=== PATIENT | female | born 1970 | race Caucasian/White ===

== ENCOUNTER 2016-05-21 23:10 | Inpatient (IN) | payer MEDICAID ==
[2016-05-21] MEDS ORDERED: FENTANYL CITRATE INJ/PF 100 MCG/2 ML AMPUL IV ONE (23:22)
[2016-05-21] MEDS ORDERED: ROCURONIUM BROMIDE INJ 50 MG/5 ML VIAL IV ONE (23:22)
[2016-05-21] MEDS ORDERED: ETOMIDATE INJ/PF 20 MG/10 ML SDV IV ONE (23:22)
[2016-05-21] MEDS ORDERED: NORMAL SALINE 1000 ML 1,000 ML IV PRN (23:22)
[2016-05-21] MEDS ORDERED: FENTANYL CITRATE INJ/PF 100 MCG/2 ML AMPUL ONE (23:27)
[2016-05-21 23:28] LABS: ABSOLUTE EOSINOPHILS # (AUTO) 0.2 10^3/uL (0.0-0.6); ABSOLUTE MONOCYTES (AUTO) 0.5 10^3/uL (0.1-1.4); ABSOLUTE NEUT (AUTO) 5.6 10^3/uL (1.7-8.2); BASOPHILS % (AUTO) 0.3 % (0-2); EOSINOPHILS % (AUTO) 2.2 % (0-6); HEMATOCRIT 42.8 % (36.0-47.0); HGB HCT DIFFERENCE 2.2; LYMPHOCYTES % (AUTO) 23.9 % (13-45); MEAN CORPUSCULAR HEMOGLOBIN 30.7 pg (27.0-33.4); MEAN CORPUSCULAR VOLUME 88 fl (80-97); MONOCYTES % (AUTO) 5.6 % (3-13); RED BLOOD COUNT 4.87 10^6/uL (3.72-5.28); RED CELL DISTRIBUTION WIDTH 13.1 % (11.5-14.0); WHITE BLOOD COUNT 8.2 10^3/uL (4.0-10.5)
--- NOTE | 2016-05-21 23:29 | ER Document Report ---
ED Psych Disorder / Suicide - General Chief Complaint: Unresponsive Stated Complaint: RESPIRATORY DISTRESS Notes: The patient is a 45-year-old female, past medical history schizophrenia, bipolar , presents by EMS after she was found unresponsive by her son. Empty bottles of her Seroquel and Klonopin next to her. Her son also says that she uses Percocet. EMS arrived and found her unresponsive. They placed a nasal trumpet and placed her on a nonrebreather. Her Accu-Chek was 140 by EMS. She was breathing 6 times a minute and EMS gave 2 mg of intranasal Narcan and 2 mg IV Narcan. The son says that she has had multiple suicide attempts in the past. Unable provide any additional history. TRAVEL OUTSIDE OF THE [place] IN LAST 30 DAYS: No - Related Data Allergies/Adverse Reactions: codeine [Codeine] Allergy (Verified 08/12/14 11:07) throat swells, blisters on tongue hydrocodone bitartrate [From Vicodin] Allergy (Verified 08/12/14 11:08) VOMITING sulfamethoxazole [From Septra] Allergy (Verified 08/12/14 11:07) throat swells, blisters in mouth trimethoprim [From Septra] Allergy (Verified 08/12/14 11:07) throat swells, blisters in mouth Past Medical History - General Information source: Relative - Son, Emergency Med Personnel Cannot obtain history due to: Altered mental status - Social History Smoking Status: Unknown if Ever Smoked Family History: Reviewed & Not Pertinent - Past Medical History Cardiac Medical History: Denies: Hx Coronary Artery Disease, Hx Heart Attack, Hx Hypertension Pulmonary Medical History: Reports: Hx Asthma, Hx Bronchitis, Hx COPD - nodules on bilateral lungs Denies: Hx Pneumonia Neurological Medical History: Denies: Hx Cerebrovascular Accident, Hx Seizures Musculoskeltal Medical History: Reports Hx Arthritis Past Surgical History: Reports: Hx Gynecologic Surgery - D&C - Immunizations Hx Diphtheria, Pertussis, Tetanus Vaccination: Yes Review of Systems - Review of Systems -: Yes ROS unobtainable due to patient's medical condition Physical Exam - Vital signs Vitals: Resp Pulse Ox 23 H 98 05/21/16 23:12 05/21/16 23:12 - Notes Notes: PHYSICAL EXAMINATION: GENERAL: Unresponsive to painful stimulation. HEAD: Atraumatic, normocephalic. EYES: Bilateral pinpoint pupils, sclera anicteric, conjunctiva are normal. ENT: Nasal trumpet in place by EMS, nares patent, oropharynx clear without exudates. Moist mucous membranes. NECK: Normal range of motion, supple without lymphadenopathy LUNGS: Shallow respirations, bradypnea HEART: Tachycardia, regular rhythm ABDOMEN: Soft, nontender, normoactive bowel sounds. EXTREMITIES: Normal range of motion, no pitting or edema. No cyanosis. NEUROLOGICAL: No response to painful stimulation. Absent gag reflex. SKIN: Clammy, wet skin Course - Re-evaluation Re-evalutation: Pt with poly-pharmacy overdose. On arrival to the emergency room, she has no response to painful stimulation and no gag reflex. Breathing 6 times a minute. She received 4 mg Narcan by EMS without any change in clinical status. Decision was made to intubate patient for airway protection and altered mental status. 05/21/16 23:25 Spoke to Poison Control: Seroquel may cause hypotension and tachycardia. Percocet may cause hepatotoxicity. If QTc is over 500, check magnesium and potassium and replace. Risk for Torsades if bradycardic. Supportive treatment for Seroquel, Klonopin and Percocet. No specific antidotes recommended. 05/21/16 23:40 IVC paperwork filled out. Patient will be evaluated by mental health when she is stable. 05/22/16 01:[address] Jimenez and he has accepted patient to ICU. - Vital Signs Vital signs: Temp Pulse Resp BP Pulse Ox 16 98/78 L 98 05/22/16 00:45 05/22/16 00:45 05/22/16 00:45 - Laboratory Result Diagrams: 05/21/16 23:13 05/21/16 23:13 Laboratory results interpreted by me: 05/21/16 05/21/16 05/21/16 23:13 23:35 23:45 ABG pO2 192.6 H ABG O2 Saturation 99.3 H Potassium 3.4 L Glucose 152 H Calcium 10.3 H Urine Blood MODERATE H Ur Leukocyte Esterase LARGE H Salicylates < 1.0 L Acetaminophen < 10 L - Diagnostic Test Radiology reviewed: Image reviewed, Reports reviewed Radiology results interpreted by me: CT Head: NAD CXR: ETT in place - EKG Interpretation by Me EKG shows normal: Sinus rhythm, [place], QRS Complexes Rate: Tachycardia Additional EKG results interpreted by me: QTc 521, Normal QRS and [place] Procedures - Intubation Orotracheal Airway evaluation: Normal anatomy, Abnormal 3-3-2 rule Mallampati Classification: Class 1 Medications: Etomidate, Other - Rocuronium Intubation method: Orotracheal Blade type: [place] Blade size: 3 Equipment used: Glidescope ETT size: 7.0 ETT secured at: Lips ETT secured at (cm): 24 Breath Sounds after Intubation: Equal End tidal CO2 confirmed: Yes Ventilator settings: AC Tidal volume: 400 FiO2: 60 Respirations: 14 PEEP: 5 Post Intubation Xray: Yes Intubation Complications: No complications Critical Care Note - Critical Care Note Total time excluding time spent on procedures (mins): 45 Discharge - Discharge Clinical Impression: Unresponsive state Polysubstance overdose Qualifiers: Encounter type: initial encounter Injury intent: intentional self-harm Qualified Code(s): T50.902A - Poisoning by unspecified drugs, medicaments and biological substances, intentional self-harm, initial encounter Condition: Critical Disposition: ADMITTED INPATIENT [facility] Admitted: ICU
[2016-05-21 23:35] LABS: ALANINE AMINOTRANSFERASE 35 U/L (9-52); ALBUMIN 4.6 g/dL (3.5-5.0); ALKALINE PHOSPHATASE 103 U/L (38-126); ANION GAP 15 (5-19); ASPARTATE AMINO TRANSFERASE 21 U/L (14-36); BILIRUBIN,DIRECT 0.2 mg/dL (0.0-0.4); BILIRUBIN,TOTAL 0.9 mg/dL (0.2-1.3); BLOOD UREA NITROGEN 8 mg/dL (7-20); CALCIUM 10.3 mg/dL (8.4-10.2); CARBON DIOXIDE 25 mmol/L (22-30); CHLORIDE 103 mmol/L (98-107); CREATINE KINASE 35 U/L (30-135); CREATININE RESULT 0.75 mg/dL (0.52-1.25); GLUCOSE 152 mg/dL (75-110); LIPASE 74.1 U/L (23-300); POTASSIUM 3.4 mmol/L (3.6-5.0); SODIUM 143.3 mmol/L (137-145); TOTAL PROTEIN 7.5 g/dL (6.3-8.2)
[2016-05-21 23:37] LABS: ALCOHOL < 10 mg/dL (NONE DETECTED)
[2016-05-21 23:57] LABS: ARTERIAL BLOOD BASE EXCESS -3.1 mmol/L; ARTERIAL BLOOD O2 SATURATION 99.3 % (94-98)
[2016-05-22 00:11] LABS: APPEARANCE,URINE CLOUDY; BILIRUBIN,URINE NEGATIVE (NEGATIVE); GLUCOSE, URINE NEGATIVE (NEGATIVE); KETONES,URINE NEGATIVE (NEGATIVE); LEUKOCYTE ESTERASE,URINE LARGE (NEGATIVE); NITRITE,URINE NEGATIVE (NEGATIVE); PROTEIN,URINE NEGATIVE (NEGATIVE); URINE SPECIFIC GRAVITY 1.008; UROBILINOGEN,URINE NEGATIVE mg/dL (<2.0)
[2016-05-22 00:16] LABS: ADD ON TESTING BLD IN LAB ACKNOWLEDGE
[2016-05-22 00:18] LABS: URINE BARBITURATES SCREEN NEGATIVE; URINE METHADONE SCREEN NEGATIVE; URINE OPIATES LOW UNCONFIRMED POSITIVE; URINE PHENCYCLIDINE SCREEN NEGATIVE
[2016-05-22] MEDS ORDERED: NORMAL SALINE 1000 ML 1,000 ML IV ONE (01:02)
[2016-05-22] MEDS ORDERED: LORAZEPAM INJ 2 MG/1 ML VIAL IV PRN ×2 (02:30→08:30)
[2016-05-22] MEDS ORDERED: DEXTROSE 50%-WATER 25 GM/50 ML DISP.SYRIN IV PRN ×2 (02:31)
[2016-05-22] MEDS ORDERED: ACETAMINOPHEN 325 MG TABLET NG PRN (02:31)
[2016-05-22] MEDS ORDERED: GLUCAGON,HUMAN RECOMB 1 MG INJ SUBCUT PRN (02:31)
[2016-05-22] MEDS ORDERED: IPRATROPIUM/ALBUTEROL 0.5-2.5 MG/3 ML AMPUL NEB PRN (02:31)
[2016-05-22] MEDS ORDERED: DEXTROSE 40% GEL 15 GM TUBE PO PRN ×2 (02:31)
[2016-05-22] MEDS ORDERED: LORAZEPAM INJ 2 MG/1 ML VIAL ONE (02:34)
[2016-05-22] MEDS ORDERED: NORMAL SALINE 1000 ML 1,000 ML IV SCH (02:45)
[2016-05-22] MEDS: POTASSI CL 20 MEQ/50 ML RIDER 50 ML IV SCH ×4 (03:14→13:56)
[2016-05-22] MEDS ORDERED: PROPOFOL 100 ML IV ONE (03:42)
[2016-05-22 04:20] LABS: TROPONIN I < 0.012 ng/mL
[2016-05-22] MEDS: HEPARIN SOD (PORCINE) 5,000 UNIT/ML 1 ML SYRINGE SUBCUT SCH ×3 (05:22→21:45)
--- NOTE | 2016-05-22 05:27 | PDOC H&P ---
History of Present Illness Admission Date/PCP: 05/22/16 01:40 Patient complains of: Altered Mental status History of Present Illness: AUDRA DUFFY is a 45 year old female with a past medical history of schizophrenia, bipolar disorder, previous suicide attempt, chronic pain, anemia and unclear lung and liver lesions according to family members. History of is obtained by multiple family members who state Patient been her usual state of health until approximately 6 hours prior to presentation noted to have cycles of excessive somnolence and euphoria for several weeks and was found unresponsive with spontaneous respirations and breathing with empty bottles of Seroquel, Klonopin and Percocet. She's brought to the emergency room via EMS and is noted to be without gag reflex corneal reflex or pupillary reflex after Narcan and intubated for airway protection. Family members admit previous episode of drug abuse, substance abuse and suicide ideation with wrist cutting remotely. He is not known to be on any new medications Past Medical History Cardiac Medical History: Denies: Coronary Artery Disease, Myocardial Infarction, Hypertension Pulmonary Medical History: Reports: Asthma, Bronchitis, Chronic Obstructive Pulmonary Disease (COPD) - nodules on bilateral lungs Denies: Pneumonia Neurological Medical History: Denies: Seizures Musculoskeltal Medical History: Reports: Arthritis Psychiatric Medical History: Reports: Bipolar Disorder, Depression, Schizoaffective Disorder, Substance Abuse Hematology: Reports: Anemia Past Surgical History Past Surgical History: Reports: Hysterectomy Social History Information Source: Relative, [facility] Records Smoking Status: Current Every Day Smoker Frequency of Alcohol Use: Social Hx Recreational Drug Use: Yes Drugs: Cocaine Hx Prescription Drug Abuse: Yes - Advance Directive Resuscitation Status: Full Code Family History Family History: Other - Unobtainable Parental Family History Reviewed: Yes Children Family History Reviewed: Yes Sibling(s) Family History Reviewed.: Yes Medication/Allergy Home Medications: Quetiapine Fumarate [Seroquel] 400 mg PO QHS 08/12/14 Vistaril 600 mg PO BID 08/12/14 Zolpidem Tartrate [Ambien] 10 mg PO QHS 08/12/14 Ibuprofen [Motrin 800 mg Tablet] 800 mg PO Q8H PRN #30 tab 08/14/14 Oxycodone HCl/Acetaminophen [Percocet 5-325 mg Tablet] 2 tab PO Q4HP PRN #30 tablet 08/14/14 Allergies/Adverse Reactions: codeine [Codeine] Allergy (Verified 08/12/14 11:07) throat swells, blisters on tongue hydrocodone bitartrate [From Vicodin] Allergy (Verified 08/12/14 11:08) VOMITING sulfamethoxazole [From Septra] Allergy (Verified 08/12/14 11:07) throat swells, blisters in mouth trimethoprim [From Septra] Allergy (Verified 08/12/14 11:07) throat swells, blisters in mouth Review of Systems ROS unobtainable: Due to mental status Physical Exam Vital Signs: Temp Pulse Resp BP Pulse Ox 97.2 F 98 16 96/70 L 98 05/22/16 04:00 05/22/16 04:00 05/22/16 04:00 05/22/16 04:00 05/22/16 04:00 Intake & Output 05/20/16 05/21/16 05/22/16 11:59 11:59 11:59 Intake Total 30 Output Total 45 Balance -15 Weight 69.1 kg General appearance: PRESENT: no acute distress, disheveled, well-developed, well -nourished Head exam: PRESENT: atraumatic, normocephalic Eye exam: PRESENT: other - Pupils 2 mm symmetric nonresponsive no corneal reflex Ear exam: PRESENT: normal external ear exam Mouth exam: PRESENT: moist, tongue midline Neck exam: ABSENT: carotid bruit, JVD, lymphadenopathy, thyromegaly Respiratory exam: PRESENT: clear to auscultation escobar. ABSENT: rales, rhonchi, wheezes Cardiovascular exam: PRESENT: RRR. ABSENT: diastolic murmur, rubs, systolic murmur Pulses: PRESENT: normal dorsalis pedis pul Vascular exam: PRESENT: normal capillary refill GI/Abdominal exam: PRESENT: normal bowel sounds, soft. ABSENT: distended, guarding, mass, organolmegaly, rebound, tenderness Rectal exam: PRESENT: deferred Extremities exam: PRESENT: full ROM. ABSENT: calf tenderness, clubbing, pedal edema Neurological exam: PRESENT: altered Psychiatric exam: PRESENT: appropriate affect, normal mood. ABSENT: homicidal ideation, suicidal ideation Skin exam: PRESENT: dry, intact, warm. ABSENT: cyanosis, rash Results Laboratory Results: 05/22/16 03:27 Lactic Acid 0.6 L 05/22/16 05/22/16 03:27 03:27 Creatine Kinase 35 CK-MB (CK-2) 0.60 Troponin I < 0.012 Impressions: Chest X-Ray 05/21/16 23:20 IMPRESSION: NO ACUTE RADIOGRAPHIC FINDING IN THE CHEST. SUPPORT DEVICE(S) IN EXPECTED LOCATIONS. Head CT 05/21/16 23:20 IMPRESSION: NORMAL BRAIN CT WITHOUT CONTRAST. Assessment & Plan - Diagnosis (1) Polysubstance overdose Qualifiers: Encounter type: initial encounter Injury intent: intentional self-harm Qualified Code(s): T50.902A - Poisoning by unspecified drugs, medicaments and biological substances, intentional self-harm, initial encounter Is this a current diagnosis for this admission?: YesPlan: Klonopin, Seroquel and Percocet bottles found empty poison control suggested supportive care and evaluation of the acetaminophen level should be admitted to the ICU for supportive care (2) Unresponsive state Is this a current diagnosis for this admission?: YesPlan: Secondary to polypharmacy complicated by non-protection of airway and unclear last seen normal state, continue ventilator support evaluate ABG in mental status Q8 hours with sedation vacation - Time Time Spent: 50 to 70 Minutes - Inpatient Certification Medical Necessity: Need Close Monitoring Due to Risk of Patient Decompensation
[2016-05-22 06:55] LABS: ARTERIAL BLOOD BASE EXCESS -0.6 mmol/L; ARTERIAL BLOOD O2 SATURATION 99.2 % (94-98)
[2016-05-22 07:18] LABS: ABSOLUTE EOSINOPHILS # (AUTO) 0.1 10^3/uL (0.0-0.6); ABSOLUTE LYMPHOCYTES (AUTO) 1.6 10^3/uL (0.5-4.7); ABSOLUTE MONOCYTES (AUTO) 0.4 10^3/uL (0.1-1.4); ABSOLUTE NEUT (AUTO) 5.3 10^3/uL (1.7-8.2); BASOPHILS % (AUTO) 0.5 % (0-2); EOSINOPHILS % (AUTO) 1.6 % (0-6); HEMATOCRIT 33.1 % (36.0-47.0); HGB HCT DIFFERENCE 1.7; LYMPHOCYTES % (AUTO) 21.4 % (13-45); MEAN CORPUSCULAR HEMOGLOBIN 30.8 pg (27.0-33.4); MEAN CORPUSCULAR HGB CONC 35.2 g/dL (32.0-36.0); MEAN CORPUSCULAR VOLUME 88 fl (80-97); MONOCYTES % (AUTO) 5.3 % (3-13); RED BLOOD COUNT 3.78 10^6/uL (3.72-5.28); SEGMENTED NEUTROPHILS % (AUTO) 71.2 % (42-78); WHITE BLOOD COUNT 7.4 10^3/uL (4.0-10.5)
[2016-05-22 07:31] LABS: HEMOGLOBIN 11.6 g/dL (12.0-15.5)
[2016-05-22 07:38] LABS: ANION GAP 9 (5-19); BLOOD UREA NITROGEN 9 mg/dL (7-20); CALCIUM 8.4 mg/dL (8.4-10.2); CARBON DIOXIDE 23 mmol/L (22-30); CHLORIDE 113 mmol/L (98-107); CREATININE RESULT 0.61 mg/dL (0.52-1.25); GLUCOSE 96 mg/dL (75-110); POTASSIUM 4.2 mmol/L (3.6-5.0); SODIUM 144.7 mmol/L (137-145)
[2016-05-22] MEDS ORDERED: NORMAL SALINE 1000 ML 2,000 ML IV ONE (08:22)
[2016-05-22] MEDS ORDERED: NORMAL SALINE 1000 ML 1,000 ML IV PRN (08:22)
[2016-05-22] MEDS ORDERED: PHARMACY COMMUNICATION ORDER MC NR (08:45)
--- NOTE | 2016-05-22 08:54 | PDOC PROGRESS REPORT ---
Subjective Progress Note for:: 05/22/16 Subjective:: Patient is intubated and sedated I am unable to obtain review of systems from her for this reason. According to nursing staff, patient is arousable but does not follow any commands when sedation is lightened. Physical Exam Vital Signs: Temp Pulse Resp BP Pulse Ox 96.8 F L 102 H 14 97/70 L 99 05/22/16 07:23 05/22/16 07:39 05/22/16 07:23 05/22/16 07:23 05/22/16 07:23 Intake & Output 05/21/16 05/22/16 05/23/16 06:59 06:59 06:59 Intake Total 1335 Output Total 185 Balance 1150 Weight 69.1 kg Exam: General: Intubated, sedated, mechanically ventilated HEENT: AT/NC, pinpoint pupils, minimally reactive, oropharynx is moist, pink, no scleral icterus, no conjunctival injection Neck: No JVD, trachea midline Chest: Coarse bilaterally CV: Regular rate and rhythm, normal S1 and S2, no murmur, rub, or gallop Abdomen: Soft, nontender to palpation, nondistended, minimally active active bowel sounds; no rigidity Extremities: No cyanosis, clubbing or edema Results Laboratory Results: 05/22/16 07:06 05/22/16 07:06 05/22/16 05/22/16 05/22/16 03:27 06:40 07:06 WBC 7.4 RBC 3.78 Hgb 11.6 L D Hct 33.1 L MCV 88 MCH 30.8 MCHC 35.2 RDW 13.0 Plt Count 144 L Seg Neutrophils % 71.2 Lymphocytes % 21.4 Monocytes % 5.3 Eosinophils % 1.6 Basophils % 0.5 Absolute Neutrophils 5.3 Absolute Lymphocytes 1.6 Absolute Monocytes 0.4 Absolute Eosinophils 0.1 Absolute Basophils 0.0 Carbonic Acid 1.05 HCO3/H2CO3 Ratio 22:1 ABG pH 7.44 ABG pCO2 34.9 L ABG pO2 168.9 H ABG HCO3 23.1 ABG O2 Saturation 99.2 H ABG Base Excess -0.6 FiO2 40% Sodium Potassium Chloride Carbon Dioxide Anion Gap BUN Creatinine Est GFR ( Amer) Est GFR (Non-Af Amer) Glucose Lactic Acid 0.6 L Calcium 05/22/16 07:06 WBC RBC Hgb Hct MCV MCH MCHC RDW Plt Count Seg Neutrophils % Lymphocytes % Monocytes % Eosinophils % Basophils % Absolute Neutrophils Absolute Lymphocytes Absolute Monocytes Absolute Eosinophils Absolute Basophils Carbonic Acid HCO3/H2CO3 Ratio ABG pH ABG pCO2 ABG pO2 ABG HCO3 ABG O2 Saturation ABG Base Excess FiO2 Sodium 144.7 Potassium 4.2 Chloride 113 H Carbon Dioxide 23 Anion Gap 9 BUN 9 Creatinine 0.61 Est GFR ( Amer) > 60 Est GFR (Non-Af Amer) > 60 Glucose 96 Lactic Acid Calcium 8.4 05/22/16 05/22/16 03:27 03:27 Creatine Kinase 35 CK-MB (CK-2) 0.60 Troponin I < 0.012 Impressions: Chest X-Ray 05/21/16 23:20 IMPRESSION: NO ACUTE RADIOGRAPHIC FINDING IN THE CHEST. SUPPORT DEVICE(S) IN EXPECTED LOCATIONS. Head CT 05/21/16 23:20 IMPRESSION: NORMAL BRAIN CT WITHOUT CONTRAST. Assessment & Plan - Diagnosis (1) Polysubstance overdose Qualifiers: Encounter type: initial encounter Injury intent: intentional self-harm Qualified Code(s): T50.902A - Poisoning by unspecified drugs, medicaments and biological substances, intentional self-harm, initial encounter Is this a current diagnosis for this admission?: YesPlan: Patient appears to have a Seroquel overdose. Her QTC was 520. This is consistent with this. Patient is also positive for opiates as well as cocaine. Coincidentally serial evaluations for acetaminophen are completely negative. This points away from patient having ingested Percocet. Patient is also reported to have ingested Klonopin, but her drug screen is also negative for benzodiazepines. I will interrogate patient's record on the [place] controlled substance database. At this time, will continue with serial monitoring of CK which is currently normal and EKG. Continue IVC and consult Dr. Varghese. (2) Acute respiratory failure Qualifiers: Respiratory failure complication: unspecified whether with hypoxia or hypercapnia Qualified Code(s): J96.00 - Acute respiratory failure, unspecified whether with hypoxia or hypercapnia Is this a current diagnosis for this admission?: YesPlan: Patient will remain intubated today she is not able to follow purposeful movement. The exact etiology of her overdose remains unknown and have concerns for ongoing inability to maintain her airway if extubated too early. Consult Dr. carrera for ventilator management. (3) Sepsis Qualifiers: Sepsis type: sepsis due to unspecified organism Qualified Code(s): A41.9 - Sepsis, unspecified organism Is this a current diagnosis for this admission?: YesPlan: Sepsis criteria met with hypothermia, altered mental status, tachycardia and obvious infection. Likely secondary to UTI. Initiate patient on Rocephin. QTC is prolonged at this time. Blood, urine, and sputum cultures are pending. (4) UTI (urinary tract infection) Qualifiers: Urinary tract infection type: acute cystitis Hematuria presence: with hematuria Qualified Code(s): N30.01 - Acute cystitis with hematuria Is this a current diagnosis for this admission?: YesPlan: Place patient on Rocephin and obtain culture. (5) Hypothermia Qualifiers: Encounter type: initial encounter Qualified Code(s): T68.XXXA - Hypothermia, initial encounter Is this a current diagnosis for this admission?: YesPlan: Use bear Hugger. Check TSH, free T4, and random cortisol (6) Bipolar 1 disorder Is this a current diagnosis for this admission?: YesPlan: Patient will remain IVC at this time. She appears to have cuts from prior attempt. Given that patient's substance abuse is likely a function of her ongoing bessy, would recommend inpatient psychiatry for evaluation and treatment of her active bipolar disease. - Time Critical Time spent with patient: 35 or more minutes Medications reviewed and adjusted accordingly: Yes Anticipated discharge: Other - Inpatient psychiatry - Inpatient Certification Based on my medical assessment, after consideration of the patient's comorbidities, presenting symptoms, or acuity I expect that the services needed warrant INPATIENT care.: Yes I certify that my determination is in accordance with my understanding of Medicare's requirements for reasonable and necessary INPATIENT services [42 CFR 412.3e].: Yes Medical Necessity: Significant Comorbidiites Make Outpatient Treatment Too Risky , Need For IV Fluids, Need for IV Antibiotics Post Hospital Care: D/C Machine Assembler Documentation
--- NOTE | 2016-05-22 09:08 | EKG REPORT ---
SEVERITY:- ABNORMAL ECG - SINUS TACHYCARDIA PROLONGED QT INTERVAL : Confirmed by: Casey Rinaldi MD 22-May-2016 09:07:36
[2016-05-22] MEDS: LACTULOSE SYRUP 20 GM/30 ML UDCUP NG SCH ×3 (09:11→17:39)
[2016-05-22] MEDS: POLYETHYLENE GLYCOL 3350 POWDER 17 GM/1 PACKET NG SCH (09:11)
[2016-05-22] MEDS: LACTOBACILLUS ACIDOPHILUS 250 MG TAB NG SCH (09:11)
[2016-05-22] MEDS: PROPOFOL 100 ML IV PRN ×3 (09:12→21:50)
[2016-05-22] MEDS ORDERED: NICOTINE 14 MG/24 HR PATCH.TD24 TD PRN (09:27)
[2016-05-22] MEDS ORDERED: MULTIVITAMIN ORAL LIQUID 60 ML NG ONE (09:34)
[2016-05-22 09:58] LABS: CREATINE KINASE MB 0.68 ng/mL (<4.55)
[2016-05-22] MEDS ORDERED: LEVOFLOXACIN 750 MG/D5W RTU 150 ML IV SCH (10:00)
[2016-05-22] MEDS ORDERED: CEFTRIAXONE 2 GM/D5W RTU 50 ML IV SCH (10:00)
[2016-05-22] MEDS ORDERED: DOCUSATE SODIUM 100 MG/10 ML UDC NG SCH (10:00)
[2016-05-22 10:01] LABS: TROPONIN I < 0.012 ng/mL
[2016-05-22 10:14] LABS: THYROID STIMULATING HORMONE 0.48 uIU/mL (0.47-4.68)
[2016-05-22] MEDS ORDERED: ROCURONIUM BROMIDE INJ 50 MG/5 ML VIAL IV ONE (10:37)
[2016-05-22 10:44] LABS: ANION GAP 8 (5-19); BLOOD UREA NITROGEN 8 mg/dL (7-20); CALCIUM 7.9 mg/dL (8.4-10.2); CARBON DIOXIDE 22 mmol/L (22-30); CHLORIDE 117 mmol/L (98-107); CREATININE RESULT 0.58 mg/dL (0.52-1.25); GLUCOSE 93 mg/dL (75-110); SODIUM 146.8 mmol/L (137-145)
[2016-05-22 10:53] LABS: ARTERIAL BLOOD BASE EXCESS -3.4 mmol/L; ARTERIAL BLOOD O2 SATURATION 98.9 % (94-98)
[2016-05-22] MEDS ORDERED: MULTIVITAMINS W-IRON TABLET, CHEWABLE NG ONE (11:00)
[2016-05-22] MEDS: THIAMINE HCL 100 MG TABLET NG SCH (11:21)
[2016-05-22] MEDS: PIPERACILLIN SODIUM/TAZOBACTAM 4.5 GM in NORMAL SALINE 100 ML IV SCH ×3 (11:23→23:35)
[2016-05-22] MEDS: MIDAZOLAM HCL 100 ML IV PRN ×2 (11:23→23:39)
[2016-05-22] MEDS: MULTIVITAMIN ORAL LIQUID 60 ML NG SCH (11:24)
[2016-05-22 11:31] LABS: ADD HIVPANEL? NO; HIV (1 AND 2) ANTIBODY NEGATIVE (NEGATIVE)
[2016-05-22 11:37] LABS: POTASSIUM 3.2 mmol/L (3.6-5.0)
[2016-05-22] MEDS: FOLIC ACID 1 MG TABLET NG SCH (11:39)
[2016-05-22] MEDS ORDERED: HYDROCORTISONE SOD SUCCINATE INJ/PF 100 MG/2 ML SDV IV ONE (11:53)
[2016-05-22] MEDS ORDERED: POTASSI CL 20 MEQ/D5-1/2NS 1L 1,000 ML IV PRN (11:54)
[2016-05-22] MEDS ORDERED: POTASSIUM CHLORIDE 20 MEQ/15 ML UDCUP NG ONE (11:55)
[2016-05-22 12:14] LABS: CHLAM PCR NOT DETECTED (NOT DETECT)
[2016-05-22] MEDS: DEXTROSE 5%-WATER 250 ML with NOREPINEPHRINE BITARTRATE 4 MG IV PRN ×2 (12:25)
[2016-05-22] MEDS: HYDROCORTISONE SOD SUCCINATE INJ/PF 100 MG/2 ML SDV IV SCH ×2 (13:42→21:45)
[2016-05-22 14:21] LABS: ANION GAP 8 (5-19); BLOOD UREA NITROGEN 7 mg/dL (7-20); CALCIUM 8.1 mg/dL (8.4-10.2); CARBON DIOXIDE 21 mmol/L (22-30); CHLORIDE 117 mmol/L (98-107); CREATININE RESULT 0.63 mg/dL (0.52-1.25); GLUCOSE 128 mg/dL (75-110); SODIUM 145.5 mmol/L (137-145)
[2016-05-22 14:33] LABS: CREATINE KINASE < 20 U/L (30-135)
[2016-05-22] MEDS: IPRATROPIUM/ALBUTEROL 0.5-2.5 MG/3 ML AMPUL NEB SCH ×2 (14:35→19:34)
[2016-05-22 14:41] LABS: POTASSIUM 5.1 mmol/L (3.6-5.0)
[2016-05-22 14:43] LABS: CREATINE KINASE MB 0.54 ng/mL (<4.55)
[2016-05-22 14:45] LABS: TROPONIN I < 0.012 ng/mL
[2016-05-22] MEDS ORDERED: NORMAL SALINE INJ/PF 0.9% 10 ML SDV IV PRN (16:43)
--- NOTE | 2016-05-22 17:23 | OPERATIVE REPORT E ---
Operative Report NAME: AUDRA DUFFY : 1970 AGE: 45Y DATE OF SURGERY: 05/22/2016 ROOM: [facility] PREOPERATIVE DIAGNOSIS: Septic shock. POSTOPERATIVE DIAGNOSIS: Septic shock. PROCEDURE: 1. Focused ultrasound of the right neck. 2. Ultrasound-directed insertion of triple-lumen central venous access catheter, right internal jugular vein. SURGEON: MIRTA BETANCOURT M.D. ANESTHESIA: Lidocaine, plain. COMPLICATIONS: None. ESTIMATED BLOOD LOSS: Scant. DRAINS: None. TISSUE REMOVED: None. DESCRIPTION OF PROCEDURE: After obtaining informed consent, the patient's right neck and chest wall were prepped and draped in a sterile fashion. Ultrasound was used to identify and confirm patency and suitability of the right internal jugular vein. Under ultrasound guidance, a triple-lumen central venous access catheter was inserted into the right internal jugular vein without difficulty. There was excellent blood flow through all 3 lumens. Catheter was flushed with heparinized saline and secured to the skin with 2-0 silk suture. Sterile dressing was applied, as well as a Biopatch. The patient tolerated the procedure well. Portable upright chest x-ray pending at the time of dictation. DICTATING PHYSICIAN: MIRTA BETANCOURT M.D. [id number] PHY#: [id number] ID: [id number] JOB#: [id number] ACCT: [id number] cc:MIRTA BETANCOURT M.D. >
--- NOTE | 2016-05-22 17:51 | EKG REPORT ---
SEVERITY:- NORMAL ECG - SINUS RHYTHM : Confirmed by: Casey Rinaldi MD 22-May-2016 17:50:42
--- NOTE | 2016-05-22 17:52 | EKG REPORT ---
SEVERITY:- ABNORMAL ECG - SINUS RHYTHM PROLONGED QT INTERVAL : Confirmed by: Casey Rinaldi MD 22-May-2016 17:50:49
[2016-05-22 18:33] LABS: ANION GAP 9 (5-19); BLOOD UREA NITROGEN 5 mg/dL (7-20); CALCIUM 8.7 mg/dL (8.4-10.2); CARBON DIOXIDE 21 mmol/L (22-30); CHLORIDE 117 mmol/L (98-107); CREATININE RESULT 0.62 mg/dL (0.52-1.25); GLUCOSE 176 mg/dL (75-110); POTASSIUM 4.7 mmol/L (3.6-5.0); SODIUM 146.9 mmol/L (137-145)
--- NOTE | 2016-05-22 19:25 | PDOC CONSULTATION ---
Consultation Consult Date: 05/22/16 Attending physician:: SARAH COLLINS Consult reason:: resp failure History of Present Illness Admission Date/PCP: 05/22/16 02:31 History of Present Illness: All information from chart patient intubated and sedated.AUDRA DUFFY is a 45 year old female with a past medical history of schizophrenia, bipolar disorder, previous suicide attempt, chronic pain, anemia and unclear lung and liver lesions according to family members. History of is obtained by multiple family members who state Patient been her usual state of health until approximately 6 hours prior to presentation noted to have cycles of excessive somnolence and euphoria for several weeks and was found unresponsive with spontaneous respirations and breathing with empty bottles of Seroquel, Klonopin and Percocet. She's brought to the emergency room via EMS and is noted to be without gag reflex corneal reflex or pupillary reflex after Narcan and intubated for airway protection. Family members admit previous episode of drug abuse, substance abuse and suicide ideation with wrist cutting remotely. He is not known to be on any new medications Past Medical History Cardiac Medical History: Denies: Coronary Artery Disease, Myocardial Infarction, Hypertension Pulmonary Medical History: Reports: Asthma, Bronchitis, Chronic Obstructive Pulmonary Disease (COPD) - nodules on bilateral lungs Denies: Pneumonia Neurological Medical History: Denies: Seizures Musculoskeltal Medical History: Reports: Arthritis Psychiatric Medical History: Reports: Bipolar Disorder, Depression, Schizoaffective Disorder, Substance Abuse Hematology: Reports: Anemia Past Surgical History Past Surgical History: Reports: Hysterectomy Social History Smoking Status: Current Every Day Smoker Frequency of Alcohol Use: Social Hx Recreational Drug Use: Yes Drugs: Cocaine Hx Prescription Drug Abuse: Yes - Advance Directive Resuscitation Status: Full Code Family History Family History: Other - Unobtainable Parental Family History Reviewed: No Children Family History Reviewed: No Sibling(s) Family History Reviewed.: No Medication/Allergy Home Medications: Unobtainable [Unobtainable] 05/22/16 Allergies/Adverse Reactions: codeine [Codeine] Allergy (Verified 08/12/14 11:07) throat swells, blisters on tongue hydrocodone bitartrate [From Vicodin] Allergy (Verified 08/12/14 11:08) VOMITING sulfamethoxazole [From Septra] Allergy (Verified 08/12/14 11:07) throat swells, blisters in mouth trimethoprim [From Septra] Allergy (Verified 08/12/14 11:07) throat swells, blisters in mouth Review of Systems ROS unobtainable: Due to endotracheal tube Physical Exam Vital Signs: Temp Pulse Resp BP Pulse Ox 99.0 F 99 16 112/66 98 05/22/16 18:00 05/22/16 14:35 05/22/16 18:00 05/22/16 17:52 05/22/16 18:00 Intake & Output 05/21/16 05/22/16 05/23/16 06:59 06:59 06:59 Intake Total 1335 4852 Output Total 185 1620 Balance 1150 3232 Weight 69.1 kg General appearance: PRESENT: no acute distress, disheveled, obese Head exam: PRESENT: atraumatic, normocephalic Eye exam: PRESENT: conjunctiva pale Mouth exam: PRESENT: dry mucosa, neck supple, other - ET tube in place Neck exam: ABSENT: carotid bruit, JVD, lymphadenopathy, thyromegaly Respiratory exam: PRESENT: rhonchi, symmetrical, unlabored Cardiovascular exam: PRESENT: RRR, +S1 Pulses: PRESENT: normal radial pulses GI/Abdominal exam: PRESENT: normal bowel sounds, soft. ABSENT: distended, guarding, mass, organolmegaly, rebound, tenderness Rectal exam: PRESENT: deferred Gentrourinary exam: PRESENT: indwelling catheter Musculoskeletal exam: PRESENT: normal inspection Skin exam: PRESENT: dry Results Laboratory Results: 05/22/16 07:06 05/22/16 18:00 05/22/16 05/22/16 05/22/16 03:27 06:40 07:06 WBC 7.4 RBC 3.78 Hgb 11.6 L D Hct 33.1 L MCV 88 MCH 30.8 MCHC 35.2 RDW 13.0 Plt Count 144 L Seg Neutrophils % 71.2 Lymphocytes % 21.4 Monocytes % 5.3 Eosinophils % 1.6 Basophils % 0.5 Absolute Neutrophils 5.3 Absolute Lymphocytes 1.6 Absolute Monocytes 0.4 Absolute Eosinophils 0.1 Absolute Basophils 0.0 Carbonic Acid 1.05 HCO3/H2CO3 Ratio 22:1 ABG pH 7.44 ABG pCO2 34.9 L ABG pO2 168.9 H ABG HCO3 23.1 ABG O2 Saturation 99.2 H ABG Base Excess -0.6 FiO2 40% Sodium Potassium Chloride Carbon Dioxide Anion Gap BUN Creatinine Est GFR ( Amer) Est GFR (Non-Af Amer) Glucose Lactic Acid 0.6 L Calcium Magnesium Triglycerides TSH Free T4 05/22/16 05/22/16 05/22/16 07:06 08:57 10:14 WBC RBC Hgb Hct MCV MCH MCHC RDW Plt Count Seg Neutrophils % Lymphocytes % Monocytes % Eosinophils % Basophils % Absolute Neutrophils Absolute Lymphocytes Absolute Monocytes Absolute Eosinophils Absolute Basophils Carbonic Acid HCO3/H2CO3 Ratio ABG pH ABG pCO2 ABG pO2 ABG HCO3 ABG O2 Saturation ABG Base Excess FiO2 Sodium 144.7 146.8 H Potassium 4.2 3.2 L D Chloride 113 H 117 H Carbon Dioxide 23 22 Anion Gap 9 8 BUN 9 8 Creatinine 0.61 0.58 Est GFR ( Amer) > 60 > 60 Est GFR (Non-Af Amer) > 60 > 60 Glucose 96 93 Lactic Acid Calcium 8.4 7.9 L Magnesium Triglycerides TSH 0.48 Free T4 0.92 05/22/16 05/22/16 05/22/16 10:14 10:14 10:40 WBC RBC Hgb Hct MCV MCH MCHC RDW Plt Count Seg Neutrophils % Lymphocytes % Monocytes % Eosinophils % Basophils % Absolute Neutrophils Absolute Lymphocytes Absolute Monocytes Absolute Eosinophils Absolute Basophils Carbonic Acid 1.14 HCO3/H2CO3 Ratio 18:1 ABG pH 7.37 ABG pCO2 37.8 ABG pO2 147.7 H ABG HCO3 21.5 ABG O2 Saturation 98.9 H ABG Base Excess -3.4 FiO2 35% Sodium Potassium Chloride Carbon Dioxide Anion Gap BUN Creatinine Est GFR ( Amer) Est GFR (Non-Af Amer) Glucose Lactic Acid Calcium Magnesium 1.7 Triglycerides 176 H TSH Free T4 05/22/16 05/22/16 13:52 18:00 WBC RBC Hgb Hct MCV MCH MCHC RDW Plt Count Seg Neutrophils % Lymphocytes % Monocytes % Eosinophils % Basophils % Absolute Neutrophils Absolute Lymphocytes Absolute Monocytes Absolute Eosinophils Absolute Basophils Carbonic Acid HCO3/H2CO3 Ratio ABG pH ABG pCO2 ABG pO2 ABG HCO3 ABG O2 Saturation ABG Base Excess FiO2 Sodium 145.5 H 146.9 H Potassium 5.1 H D 4.7 Chloride 117 H 117 H Carbon Dioxide 21 L 21 L Anion Gap 8 9 BUN 7 5 L Creatinine 0.63 0.62 Est GFR ( Amer) > 60 > 60 Est GFR (Non-Af Amer) > 60 > 60 Glucose 128 H 176 H Lactic Acid Calcium 8.1 L 8.7 Magnesium Triglycerides TSH Free T4 05/22/16 05/22/16 05/22/16 03:27 03:27 07:06 Creatine Kinase 35 Cancelled CK-MB (CK-2) 0.60 Troponin I < 0.012 05/22/16 05/22/16 05/22/16 07:06 08:57 13:52 Creatine Kinase 24 L < 20 L CK-MB (CK-2) 0.68 Troponin I < 0.012 05/22/16 13:52 Creatine Kinase CK-MB (CK-2) 0.54 Troponin I < 0.012 Impressions: Head CT 05/21/16 23:20 IMPRESSION: NORMAL BRAIN CT WITHOUT CONTRAST. Chest X-Ray 05/22/16 16:44 IMPRESSION: NO ACUTE RADIOGRAPHIC FINDING IN THE CHEST. IJ catheter tip in the right atrium. ETT in nasogastric tube in expected locations. Assessment & Plan - Diagnosis (1) Acute respiratory failure Qualifiers: Respiratory failure complication: unspecified whether with hypoxia or hypercapnia Qualified Code(s): J96.00 - Acute respiratory failure, unspecified whether with hypoxia or hypercapnia Is this a current diagnosis for this admission?: YesPlan: unable to protect airway insufficient resp drive (2) Sepsis Qualifiers: Sepsis type: sepsis due to unspecified organism Qualified Code(s): A41.9 - Sepsis, unspecified organism Is this a current diagnosis for this admission?: YesPlan: vasopressors as needed (3) TCA (tricyclic antidepressant) overdose of undetermined intent Qualifiers: Encounter type: initial encounter Qualified Code(s): T43.014A - Poisoning by tricyclic antidepressants, undetermined, initial encounter Is this a current diagnosis for this admission?: Yes (4) Unresponsive state Is this a current diagnosis for this admission?: YesPlan: ekg monitoring ekg's
[2016-05-22 20:48] LABS: CREATINE KINASE MB 0.47 ng/mL (<4.55)
[2016-05-22 20:52] LABS: TROPONIN I < 0.012 ng/mL
[2016-05-22] MEDS: FENTANYL CITRATE INJ/PF 100 MCG/2 ML AMPUL IV PRN (21:49)
[2016-05-22 22:37] LABS: ANION GAP 13 (5-19); BLOOD UREA NITROGEN 4 mg/dL (7-20); CALCIUM 8.5 mg/dL (8.4-10.2); CARBON DIOXIDE 20 mmol/L (22-30); CHLORIDE 112 mmol/L (98-107); CREATININE RESULT 0.59 mg/dL (0.52-1.25); GLUCOSE 142 mg/dL (75-110); POTASSIUM 4.3 mmol/L (3.6-5.0); SODIUM 144.6 mmol/L (137-145)
[2016-05-23] MEDS: IPRATROPIUM/ALBUTEROL 0.5-2.5 MG/3 ML AMPUL NEB SCH ×4 (01:34→20:13)
[2016-05-23 02:43] LABS: ANION GAP 10 (5-19); BLOOD UREA NITROGEN 5 mg/dL (7-20); CALCIUM 9.1 mg/dL (8.4-10.2); CARBON DIOXIDE 24 mmol/L (22-30); CHLORIDE 111 mmol/L (98-107); CREATININE RESULT 0.61 mg/dL (0.52-1.25); GLUCOSE 143 mg/dL (75-110); POTASSIUM 4.2 mmol/L (3.6-5.0); SODIUM 144.7 mmol/L (137-145)
[2016-05-23] MEDS: FENTANYL CITRATE INJ/PF 100 MCG/2 ML AMPUL IV PRN (03:57)
[2016-05-23] MEDS: HYDROCORTISONE SOD SUCCINATE INJ/PF 100 MG/2 ML SDV IV SCH ×3 (05:12→21:52)
[2016-05-23] MEDS: PROPOFOL 100 ML IV PRN ×4 (05:12→22:17)
[2016-05-23] MEDS: HEPARIN SOD (PORCINE) 5,000 UNIT/ML 1 ML SYRINGE SUBCUT SCH ×3 (05:12→21:53)
[2016-05-23] MEDS: PIPERACILLIN SODIUM/TAZOBACTAM 4.5 GM in NORMAL SALINE 100 ML IV SCH ×3 (05:13→17:15)
[2016-05-23 05:47] LABS: MEAN CORPUSCULAR VOLUME 89 fl (80-97)
[2016-05-23 05:52] LABS: ABSOLUTE LYMPHOCYTES (AUTO) 1.2 10^3/uL (0.5-4.7); ABSOLUTE MONOCYTES (AUTO) 0.5 10^3/uL (0.1-1.4); ABSOLUTE NEUT (AUTO) 14.4 10^3/uL (1.7-8.2); BASOPHILS % (AUTO) 0.3 % (0-2); EOSINOPHILS % (AUTO) 0.1 % (0-6); HEMATOCRIT 32.8 % (36.0-47.0); HEMOGLOBIN 11.1 g/dL (12.0-15.5); HGB HCT DIFFERENCE 0.5; LYMPHOCYTES % (AUTO) 7.5 % (13-45); MEAN CORPUSCULAR HEMOGLOBIN 30.2 pg (27.0-33.4); MEAN CORPUSCULAR HGB CONC 33.8 g/dL (32.0-36.0); MONOCYTES % (AUTO) 3.3 % (3-13); RED BLOOD COUNT 3.66 10^6/uL (3.72-5.28); RED CELL DISTRIBUTION WIDTH 13.2 % (11.5-14.0); SEGMENTED NEUTROPHILS % (AUTO) 88.8 % (42-78)
[2016-05-23 05:54] LABS: ARTERIAL BLOOD BASE EXCESS -1.3 mmol/L; ARTERIAL BLOOD O2 SATURATION 98.2 % (94-98)
[2016-05-23 05:56] LABS: WHITE BLOOD COUNT 16.2 10^3/uL (4.0-10.5)
[2016-05-23 05:58] LABS: PROTHROMBIN TIME 13.6 SEC (11.4-15.4)
[2016-05-23 06:11] LABS: ALANINE AMINOTRANSFERASE 26 U/L (9-52); ALKALINE PHOSPHATASE 62 U/L (38-126); ANION GAP 8 (5-19); ASPARTATE AMINO TRANSFERASE 13 U/L (14-36); BILIRUBIN,DIRECT 0.1 mg/dL (0.0-0.4); BILIRUBIN,TOTAL 0.3 mg/dL (0.2-1.3); BLOOD UREA NITROGEN 5 mg/dL (7-20); CALCIUM 8.7 mg/dL (8.4-10.2); CARBON DIOXIDE 25 mmol/L (22-30); CHLORIDE 111 mmol/L (98-107); CREATININE RESULT 0.57 mg/dL (0.52-1.25); GLUCOSE 115 mg/dL (75-110); MAGNESIUM 1.8 mg/dL (1.6-2.3); PHOSPHORUS 3.9 mg/dL (2.5-4.5); POTASSIUM 4.3 mmol/L (3.6-5.0); SODIUM 143.8 mmol/L (137-145); TOTAL PROTEIN 5.3 g/dL (6.3-8.2)
[2016-05-23 06:18] LABS: PREALBUMIN 13.1 mg/dL (17.6-36.0)
--- NOTE | 2016-05-23 08:26 | PDOC PROGRESS REPORT ---
Subjective Progress Note for:: 05/23/16 Subjective:: intubated Physical Exam Vital Signs: Temp Pulse Resp BP Pulse Ox 99.7 F 103 H 14 97/69 L 99 05/23/16 06:48 05/23/16 04:00 05/23/16 06:48 05/23/16 06:48 05/23/16 06:48 Intake & Output 05/22/16 05/23/16 05/24/16 06:59 06:59 06:59 Intake Total 1335 6699 Output Total 185 4245 Balance 1150 2454 Weight 69.1 kg 68.8 kg General appearance: PRESENT: no acute distress, disheveled Head exam: PRESENT: atraumatic, normocephalic Eye exam: PRESENT: conjunctiva pale Mouth exam: PRESENT: dry mucosa, neck supple, other - ET tube Neck exam: ABSENT: carotid bruit, JVD, lymphadenopathy, thyromegaly Respiratory exam: PRESENT: prolonged expiratory phas, rhonchi, symmetrical, unlabored Cardiovascular exam: PRESENT: RRR, +S1, +S2 Pulses: PRESENT: normal radial pulses GI/Abdominal exam: PRESENT: normal bowel sounds, soft. ABSENT: distended, guarding, mass, organolmegaly, rebound, tenderness Rectal exam: PRESENT: deferred Musculoskeletal exam: PRESENT: normal inspection Skin exam: PRESENT: dry, warm Results Laboratory Results: 05/23/16 05:30 05/23/16 05:30 05/22/16 05/22/16 05/22/16 08:57 10:14 10:14 WBC RBC Hgb Hct MCV MCH MCHC RDW Plt Count Seg Neutrophils % Lymphocytes % Monocytes % Eosinophils % Basophils % Absolute Neutrophils Absolute Lymphocytes Absolute Monocytes Absolute Eosinophils Absolute Basophils Carbonic Acid HCO3/H2CO3 Ratio ABG pH ABG pCO2 ABG pO2 ABG HCO3 ABG O2 Saturation ABG Base Excess FiO2 Sodium 146.8 H Potassium 3.2 L D Chloride 117 H Carbon Dioxide 22 Anion Gap 8 BUN 8 Creatinine 0.58 Est GFR ( Amer) > 60 Est GFR (Non-Af Amer) > 60 Glucose 93 Calcium 7.9 L Phosphorus Magnesium Total Bilirubin AST ALT Alkaline Phosphatase Ammonia Total Protein Albumin Prealbumin Triglycerides 176 H TSH 0.48 Free T4 0.92 05/22/16 05/22/16 05/22/16 10:14 10:40 13:52 WBC RBC Hgb Hct MCV MCH MCHC RDW Plt Count Seg Neutrophils % Lymphocytes % Monocytes % Eosinophils % Basophils % Absolute Neutrophils Absolute Lymphocytes Absolute Monocytes Absolute Eosinophils Absolute Basophils Carbonic Acid 1.14 HCO3/H2CO3 Ratio 18:1 ABG pH 7.37 ABG pCO2 37.8 ABG pO2 147.7 H ABG HCO3 21.5 ABG O2 Saturation 98.9 H ABG Base Excess -3.4 FiO2 35% Sodium 145.5 H Potassium 5.1 H D Chloride 117 H Carbon Dioxide 21 L Anion Gap 8 BUN 7 Creatinine 0.63 Est GFR ( Amer) > 60 Est GFR (Non-Af Amer) > 60 Glucose 128 H Calcium 8.1 L Phosphorus Magnesium 1.7 Total Bilirubin AST ALT Alkaline Phosphatase Ammonia Total Protein Albumin Prealbumin Triglycerides TSH Free T4 05/22/16 05/22/16 05/23/16 18:00 22:00 02:00 WBC RBC Hgb Hct MCV MCH MCHC RDW Plt Count Seg Neutrophils % Lymphocytes % Monocytes % Eosinophils % Basophils % Absolute Neutrophils Absolute Lymphocytes Absolute Monocytes Absolute Eosinophils Absolute Basophils Carbonic Acid HCO3/H2CO3 Ratio ABG pH ABG pCO2 ABG pO2 ABG HCO3 ABG O2 Saturation ABG Base Excess FiO2 Sodium 146.9 H 144.6 144.7 Potassium 4.7 4.3 4.2 Chloride 117 H 112 H 111 H Carbon Dioxide 21 L 20 L 24 Anion Gap 9 13 10 BUN 5 L 4 L 5 L Creatinine 0.62 0.59 0.61 Est GFR ( Amer) > 60 > 60 > 60 Est GFR (Non-Af Amer) > 60 > 60 > 60 Glucose 176 H 142 H 143 H Calcium 8.7 8.5 9.1 Phosphorus Magnesium Total Bilirubin AST ALT Alkaline Phosphatase Ammonia Total Protein Albumin Prealbumin Triglycerides TSH Free T4 05/23/16 05/23/16 05/23/16 05:30 05:30 05:30 WBC RBC Hgb Hct MCV MCH MCHC RDW Plt Count Seg Neutrophils % Lymphocytes % Monocytes % Eosinophils % Basophils % Absolute Neutrophils Absolute Lymphocytes Absolute Monocytes Absolute Eosinophils Absolute Basophils Carbonic Acid 1.15 HCO3/H2CO3 Ratio 20:1 ABG pH 7.40 ABG pCO2 38.1 ABG pO2 114.2 H ABG HCO3 23.2 ABG O2 Saturation 98.2 H ABG Base Excess -1.3 FiO2 30% Sodium 143.8 Potassium 4.3 Chloride 111 H Carbon Dioxide 25 Anion Gap 8 BUN 5 L Creatinine 0.57 Est GFR ( Amer) > 60 Est GFR (Non-Af Amer) > 60 Glucose 115 H Calcium 8.7 Phosphorus 3.9 Magnesium 1.8 Total Bilirubin 0.3 AST 13 L ALT 26 Alkaline Phosphatase 62 Ammonia < 8.7 L Total Protein 5.3 L Albumin 3.0 L Prealbumin 13.1 L Triglycerides TSH Free T4 05/23/16 05:30 WBC 16.2 H D RBC 3.66 L Hgb 11.1 L Hct 32.8 L MCV 89 MCH 30.2 MCHC 33.8 RDW 13.2 Plt Count 142 L Seg Neutrophils % 88.8 H Lymphocytes % 7.5 L Monocytes % 3.3 Eosinophils % 0.1 Basophils % 0.3 Absolute Neutrophils 14.4 H Absolute Lymphocytes 1.2 Absolute Monocytes 0.5 Absolute Eosinophils 0.0 Absolute Basophils 0.0 Carbonic Acid HCO3/H2CO3 Ratio ABG pH ABG pCO2 ABG pO2 ABG HCO3 ABG O2 Saturation ABG Base Excess FiO2 Sodium Potassium Chloride Carbon Dioxide Anion Gap BUN Creatinine Est GFR ( Amer) Est GFR (Non-Af Amer) Glucose Calcium Phosphorus Magnesium Total Bilirubin AST ALT Alkaline Phosphatase Ammonia Total Protein Albumin Prealbumin Triglycerides TSH Free T4 05/22/16 05/22/16 05/22/16 03:27 03:27 07:06 Creatine Kinase 35 Cancelled CK-MB (CK-2) 0.60 Troponin I < 0.012 05/22/16 05/22/16 05/22/16 07:06 08:57 13:52 Creatine Kinase 24 L < 20 L CK-MB (CK-2) 0.68 Troponin I < 0.012 05/22/16 05/22/16 05/22/16 13:52 20:00 20:00 Creatine Kinase < 20 L CK-MB (CK-2) 0.54 0.47 Troponin I < 0.012 < 0.012 Impressions: Head CT 05/21/16 23:20 IMPRESSION: NORMAL BRAIN CT WITHOUT CONTRAST. Chest X-Ray 05/23/16 06:00 IMPRESSION: No acute cardiopulmonary findings. Lines and tubes. Consider adjustment of a right internal jugular central line. Assessment & Plan - Diagnosis (1) Acute respiratory failure Qualifiers: Respiratory failure complication: unspecified whether with hypoxia or hypercapnia Qualified Code(s): J96.00 - Acute respiratory failure, unspecified whether with hypoxia or hypercapnia Is this a current diagnosis for this admission?: Yes (2) Sepsis Qualifiers: Sepsis type: sepsis due to unspecified organism Qualified Code(s): A41.9 - Sepsis, unspecified organism Is this a current diagnosis for this admission?: Yes (3) TCA (tricyclic antidepressant) overdose of undetermined intent Qualifiers: Encounter type: initial encounter Qualified Code(s): T43.014A - Poisoning by tricyclic antidepressants, undetermined, initial encounter Is this a current diagnosis for this admission?: Yes (4) Unresponsive state Is this a current diagnosis for this admission?: Yes - Time Critical Time spent with patient: 35 or more minutes
--- NOTE | 2016-05-23 08:28 | PDOC PROGRESS REPORT ---
Subjective Progress Note for:: 05/23/16 Subjective:: History and physical examination reviewed. Reportedly patient took overdose of her home medications believed to be try cyclic antidepressant. History of suicide in the past. Patient currently intubated and sedated. On mechanical ventilatory. No reported respiratory distress, temperature spikes. Percocet was one of the medications as well that is suspected however patient's Tylenol level monitoring was less than 10 on both medications. No rising level was noted. Physical Exam Vital Signs: Temp Pulse Resp BP Pulse Ox 99.7 F 103 H 14 97/69 L 99 05/23/16 06:48 05/23/16 04:00 05/23/16 06:48 05/23/16 06:48 05/23/16 06:48 Intake & Output 05/22/16 05/23/16 05/24/16 06:59 06:59 06:59 Intake Total 1335 6699 Output Total 185 4245 Balance 1150 2454 Weight 69.1 kg 68.8 kg General appearance: PRESENT: no acute distress, other - Intubated and sedated Head exam: PRESENT: normocephalic Eye exam: PRESENT: conjunctiva pink Mouth exam: PRESENT: moist, neck supple Neck exam: ABSENT: JVD Respiratory exam: PRESENT: clear to auscultation escobar. ABSENT: rhonchi, wheezes Cardiovascular exam: PRESENT: RRR. ABSENT: gallop GI/Abdominal exam: PRESENT: hyperactive bowel sounds, soft. ABSENT: distended Extremities exam: ABSENT: clubbing, pedal edema Skin exam: PRESENT: dry, warm. ABSENT: cyanosis Results Laboratory Results: 05/23/16 05:30 05/23/16 05:30 05/22/16 05/22/16 05/22/16 08:57 10:14 10:14 WBC RBC Hgb Hct MCV MCH MCHC RDW Plt Count Seg Neutrophils % Lymphocytes % Monocytes % Eosinophils % Basophils % Absolute Neutrophils Absolute Lymphocytes Absolute Monocytes Absolute Eosinophils Absolute Basophils Carbonic Acid HCO3/H2CO3 Ratio ABG pH ABG pCO2 ABG pO2 ABG HCO3 ABG O2 Saturation ABG Base Excess FiO2 Sodium 146.8 H Potassium 3.2 L D Chloride 117 H Carbon Dioxide 22 Anion Gap 8 BUN 8 Creatinine 0.58 Est GFR ( Amer) > 60 Est GFR (Non-Af Amer) > 60 Glucose 93 Calcium 7.9 L Phosphorus Magnesium Total Bilirubin AST ALT Alkaline Phosphatase Ammonia Total Protein Albumin Prealbumin Triglycerides 176 H TSH 0.48 Free T4 0.92 05/22/16 05/22/16 05/22/16 10:14 10:40 13:52 WBC RBC Hgb Hct MCV MCH MCHC RDW Plt Count Seg Neutrophils % Lymphocytes % Monocytes % Eosinophils % Basophils % Absolute Neutrophils Absolute Lymphocytes Absolute Monocytes Absolute Eosinophils Absolute Basophils Carbonic Acid 1.14 HCO3/H2CO3 Ratio 18:1 ABG pH 7.37 ABG pCO2 37.8 ABG pO2 147.7 H ABG HCO3 21.5 ABG O2 Saturation 98.9 H ABG Base Excess -3.4 FiO2 35% Sodium 145.5 H Potassium 5.1 H D Chloride 117 H Carbon Dioxide 21 L Anion Gap 8 BUN 7 Creatinine 0.63 Est GFR ( Amer) > 60 Est GFR (Non-Af Amer) > 60 Glucose 128 H Calcium 8.1 L Phosphorus Magnesium 1.7 Total Bilirubin AST ALT Alkaline Phosphatase Ammonia Total Protein Albumin Prealbumin Triglycerides TSH Free T4 05/22/16 05/22/16 05/23/16 18:00 22:00 02:00 WBC RBC Hgb Hct MCV MCH MCHC RDW Plt Count Seg Neutrophils % Lymphocytes % Monocytes % Eosinophils % Basophils % Absolute Neutrophils Absolute Lymphocytes Absolute Monocytes Absolute Eosinophils Absolute Basophils Carbonic Acid HCO3/H2CO3 Ratio ABG pH ABG pCO2 ABG pO2 ABG HCO3 ABG O2 Saturation ABG Base Excess FiO2 Sodium 146.9 H 144.6 144.7 Potassium 4.7 4.3 4.2 Chloride 117 H 112 H 111 H Carbon Dioxide 21 L 20 L 24 Anion Gap 9 13 10 BUN 5 L 4 L 5 L Creatinine 0.62 0.59 0.61 Est GFR ( Amer) > 60 > 60 > 60 Est GFR (Non-Af Amer) > 60 > 60 > 60 Glucose 176 H 142 H 143 H Calcium 8.7 8.5 9.1 Phosphorus Magnesium Total Bilirubin AST ALT Alkaline Phosphatase Ammonia Total Protein Albumin Prealbumin Triglycerides TSH Free T4 05/23/16 05/23/16 05/23/16 05:30 05:30 05:30 WBC RBC Hgb Hct MCV MCH MCHC RDW Plt Count Seg Neutrophils % Lymphocytes % Monocytes % Eosinophils % Basophils % Absolute Neutrophils Absolute Lymphocytes Absolute Monocytes Absolute Eosinophils Absolute Basophils Carbonic Acid 1.15 HCO3/H2CO3 Ratio 20:1 ABG pH 7.40 ABG pCO2 38.1 ABG pO2 114.2 H ABG HCO3 23.2 ABG O2 Saturation 98.2 H ABG Base Excess -1.3 FiO2 30% Sodium 143.8 Potassium 4.3 Chloride 111 H Carbon Dioxide 25 Anion Gap 8 BUN 5 L Creatinine 0.57 Est GFR ( Amer) > 60 Est GFR (Non-Af Amer) > 60 Glucose 115 H Calcium 8.7 Phosphorus 3.9 Magnesium 1.8 Total Bilirubin 0.3 AST 13 L ALT 26 Alkaline Phosphatase 62 Ammonia < 8.7 L Total Protein 5.3 L Albumin 3.0 L Prealbumin 13.1 L Triglycerides TSH Free T4 05/23/16 05:30 WBC 16.2 H D RBC 3.66 L Hgb 11.1 L Hct 32.8 L MCV 89 MCH 30.2 MCHC 33.8 RDW 13.2 Plt Count 142 L Seg Neutrophils % 88.8 H Lymphocytes % 7.5 L Monocytes % 3.3 Eosinophils % 0.1 Basophils % 0.3 Absolute Neutrophils 14.4 H Absolute Lymphocytes 1.2 Absolute Monocytes 0.5 Absolute Eosinophils 0.0 Absolute Basophils 0.0 Carbonic Acid HCO3/H2CO3 Ratio ABG pH ABG pCO2 ABG pO2 ABG HCO3 ABG O2 Saturation ABG Base Excess FiO2 Sodium Potassium Chloride Carbon Dioxide Anion Gap BUN Creatinine Est GFR ( Amer) Est GFR (Non-Af Amer) Glucose Calcium Phosphorus Magnesium Total Bilirubin AST ALT Alkaline Phosphatase Ammonia Total Protein Albumin Prealbumin Triglycerides TSH Free T4 05/22/16 05/22/16 05/22/16 03:27 03:27 07:06 Creatine Kinase 35 Cancelled CK-MB (CK-2) 0.60 Troponin I < 0.012 05/22/16 05/22/16 05/22/16 07:06 08:57 13:52 Creatine Kinase 24 L < 20 L CK-MB (CK-2) 0.68 Troponin I < 0.012 05/22/16 05/22/16 05/22/16 13:52 20:00 20:00 Creatine Kinase < 20 L CK-MB (CK-2) 0.54 0.47 Troponin I < 0.012 < 0.012 Impressions: Head CT 05/21/16 23:20 IMPRESSION: NORMAL BRAIN CT WITHOUT CONTRAST. Chest X-Ray 05/23/16 06:00 IMPRESSION: No acute cardiopulmonary findings. Lines and tubes. Consider adjustment of a right internal jugular central line. Assessment & Plan - Diagnosis (1) Acute respiratory failure Qualifiers: Respiratory failure complication: unspecified whether with hypoxia or hypercapnia Qualified Code(s): J96.00 - Acute respiratory failure, unspecified whether with hypoxia or hypercapnia Is this a current diagnosis for this admission?: Yes (2) Sepsis Qualifiers: Sepsis type: sepsis due to unspecified organism Qualified Code(s): A41.9 - Sepsis, unspecified organism Is this a current diagnosis for this admission?: Yes (3) UTI (urinary tract infection) Qualifiers: Urinary tract infection type: acute cystitis Hematuria presence: with hematuria Qualified Code(s): N30.01 - Acute cystitis with hematuria Is this a current diagnosis for this admission?: Yes (4) TCA (tricyclic antidepressant) overdose of undetermined intent Qualifiers: Encounter type: initial encounter Qualified Code(s): T43.014A - Poisoning by tricyclic antidepressants, undetermined, initial encounter Is this a current diagnosis for this admission?: Yes (5) Polysubstance overdose Qualifiers: Encounter type: initial encounter Injury intent: intentional self-harm Qualified Code(s): T50.902A - Poisoning by unspecified drugs, medicaments and biological substances, intentional self-harm, initial encounter Is this a current diagnosis for this admission?: Yes (6) Bipolar 1 disorder Is this a current diagnosis for this admission?: Yes (7) COPD (chronic obstructive pulmonary disease) Qualifiers: COPD type: unspecified COPD Qualified Code(s): J44.9 - Chronic obstructive pulmonary disease, unspecified Is this a current diagnosis for this admission?: Yes (8) Schizoaffective disorder Qualifiers: Schizoaffective disorder type: unspecified Qualified Code(s): F25.9 - Schizoaffective disorder, unspecified Is this a current diagnosis for this admission?: Yes (9) Chronic pain syndrome Is this a current diagnosis for this admission?: Yes - Time Time Spent with patient: 25-34 minutes - Plan Summary Plan Summary: Patient's chest x-ray showed tip of the central line and the right atrium. We will ask pulmonary/critical care services to retract line as per radiology recommendation. Staff nurse informed as well. We will continue current antibiotic. Monitor electrolytes, when extubated, we will consult psychiatry. The patient continues to be intubated in the next 24.48 hours, we will begin tube feedings. Continue supportive care.
[2016-05-23] MEDS ORDERED: TOBRAMYCIN SULFATE INJ 80 MG/2 ML VIAL NEB SCH (08:30)
[2016-05-23] MEDS ORDERED: LIDOCAINE 1% INJ-PF (10 MG/ML) 30 ML SDV ONE (08:36)
--- NOTE | 2016-05-23 08:43 | EKG REPORT ---
SEVERITY:- BORDERLINE ECG - SINUS TACHYCARDIA BORDERLINE R WAVE PROGRESSION, ANTERIOR LEADS : Confirmed by: Fadumo Lawrence 23-May-2016 08:41:43
--- NOTE | 2016-05-23 08:43 | EKG REPORT ---
SEVERITY:- OTHERWISE NORMAL ECG - SINUS TACHYCARDIA : Confirmed by: Fadumo Lawrence 23-May-2016 08:41:36
[2016-05-23] MEDS ORDERED: TOBRAMYCIN SULFATE NEB 40 MG/ML 30 ML NEB ONE (08:45)
[2016-05-23] MEDS ORDERED: TOBRAMYCIN SULFATE NEB 40 MG/ML 30 ML NEB PRN (10:00)
[2016-05-23] MEDS: LACTOBACILLUS ACIDOPHILUS 250 MG TAB NG SCH (10:01)
[2016-05-23] MEDS: POLYETHYLENE GLYCOL 3350 POWDER 17 GM/1 PACKET NG SCH (10:01)
[2016-05-23] MEDS: FOLIC ACID 1 MG TABLET NG SCH (10:02)
[2016-05-23] MEDS: THIAMINE HCL 100 MG TABLET NG SCH (10:02)
[2016-05-23] MEDS: POTASSI CL 20 MEQ/D5-1/2NS 1L 1,000 ML IV PRN ×3 (10:31→20:07)
[2016-05-23] MEDS: MULTIVITAMIN ORAL LIQUID 60 ML NG SCH (10:32)
[2016-05-23] MEDS: DEXTROSE 5%-WATER 250 ML with NOREPINEPHRINE BITARTRATE 4 MG IV PRN ×2 (15:10)
--- NOTE | 2016-05-23 18:59 | EKG REPORT ---
SEVERITY:- OTHERWISE NORMAL ECG - SINUS TACHYCARDIA : Confirmed by: Fadumo Lawrence 23-May-2016 18:58:12
--- NOTE | 2016-05-23 18:59 | EKG REPORT ---
SEVERITY:- OTHERWISE NORMAL ECG - SINUS TACHYCARDIA : Confirmed by: Fadumo Lawrence 23-May-2016 18:58:30
[2016-05-23] MEDS: TOBRAMYCIN SULFATE NEB 40 MG/ML 30 ML NEB SCH (20:12)
[2016-05-24] MEDS: IPRATROPIUM/ALBUTEROL 0.5-2.5 MG/3 ML AMPUL NEB SCH ×4 (02:08→20:17)
[2016-05-24] MEDS: PROPOFOL 100 ML IV PRN ×2 (03:46→08:21)
[2016-05-24] MEDS: POTASSI CL 20 MEQ/D5-1/2NS 1L 1,000 ML IV PRN ×2 (03:47→16:33)
[2016-05-24 05:19] LABS: ARTERIAL BLOOD BASE EXCESS 0.7 mmol/L; ARTERIAL BLOOD O2 SATURATION 98.7 % (94-98)
[2016-05-24] MEDS: PIPERACILLIN SODIUM/TAZOBACTAM 4.5 GM in NORMAL SALINE 100 ML IV SCH ×5 (05:28→18:25)
[2016-05-24] MEDS: HYDROCORTISONE SOD SUCCINATE INJ/PF 100 MG/2 ML SDV IV SCH ×3 (05:28→21:08)
[2016-05-24] MEDS: HEPARIN SOD (PORCINE) 5,000 UNIT/ML 1 ML SYRINGE SUBCUT SCH ×3 (05:29→21:09)
[2016-05-24 05:35] LABS: ABSOLUTE MONOCYTES (AUTO) 0.3 10^3/uL (0.1-1.4); ABSOLUTE NEUT (AUTO) 8.5 10^3/uL (1.7-8.2); BASOPHILS % (AUTO) 0.2 % (0-2); EOSINOPHILS % (AUTO) 0.3 % (0-6); HEMATOCRIT 31.1 % (36.0-47.0); HEMOGLOBIN 10.7 g/dL (12.0-15.5); LYMPHOCYTES % (AUTO) 9.8 % (13-45); MEAN CORPUSCULAR HEMOGLOBIN 30.9 pg (27.0-33.4); MEAN CORPUSCULAR HGB CONC 34.3 g/dL (32.0-36.0); MEAN CORPUSCULAR VOLUME 90 fl (80-97); RED BLOOD COUNT 3.46 10^6/uL (3.72-5.28); RED CELL DISTRIBUTION WIDTH 13.5 % (11.5-14.0); SEGMENTED NEUTROPHILS % (AUTO) 86.7 % (42-78); WHITE BLOOD COUNT 9.8 10^3/uL (4.0-10.5)
[2016-05-24 05:38] LABS: ANION GAP 10 (5-19); BLOOD UREA NITROGEN 8 mg/dL (7-20); CALCIUM 8.8 mg/dL (8.4-10.2); CARBON DIOXIDE 26 mmol/L (22-30); CHLORIDE 110 mmol/L (98-107); CREATININE RESULT 0.58 mg/dL (0.52-1.25); GLUCOSE 135 mg/dL (75-110); MAGNESIUM 2.2 mg/dL (1.6-2.3); PHOSPHORUS 3.8 mg/dL (2.5-4.5); POTASSIUM 4.5 mmol/L (3.6-5.0); SODIUM 145.7 mmol/L (137-145)
[2016-05-24] MEDS: TOBRAMYCIN SULFATE NEB 40 MG/ML 30 ML NEB SCH ×2 (08:08→20:17)
--- NOTE | 2016-05-24 09:08 | PDOC PROGRESS REPORT ---
Subjective Progress Note for:: 05/24/16 Subjective:: History and physical examination reviewed. Reportedly patient took overdose of her home medications believed to be try cyclic antidepressant. History of suicide in the past. Patient remained intubated and sedated. On mechanical ventilatory. No reported respiratory distress, temperature spikes. Sputum culture growing polymicrobial organism including gram-positive cocci in clusters and gram-negative rods. Tobramycin inhaler was given. Patient remains on Zosyn. Blood pressure on the low normal side. Physical Exam Vital Signs: Temp Pulse Resp BP Pulse Ox 98.1 F 100 14 99/67 L 99 05/24/16 08:00 05/24/16 08:08 05/24/16 08:08 05/24/16 08:00 05/24/16 08:08 Intake & Output 05/23/16 05/24/16 05/25/16 06:59 06:59 06:59 Intake Total 6699 3687 Output Total 4245 5100 150 Balance 2454 -1413 -150 Weight 68.8 kg 67 kg General appearance: PRESENT: no acute distress, other - Sedated and intubated Head exam: PRESENT: normocephalic Eye exam: PRESENT: conjunctiva pink Mouth exam: PRESENT: moist, neck supple Neck exam: ABSENT: JVD Respiratory exam: PRESENT: clear to auscultation escobar. ABSENT: rhonchi, wheezes Cardiovascular exam: PRESENT: RRR. ABSENT: gallop GI/Abdominal exam: PRESENT: normal bowel sounds, soft. ABSENT: distended, tenderness Extremities exam: PRESENT: other - Trace lower extremity edema Neurological exam: PRESENT: other - Sedated and intubated, on mechanical ventilatory Psychiatric exam: ABSENT: agitated Focused psych exam: ABSENT: restlessness Skin exam: PRESENT: dry, warm. ABSENT: cyanosis Results Laboratory Results: 05/24/16 04:58 05/24/16 04:58 05/24/16 05/24/16 05/24/16 04:58 04:58 04:58 WBC 9.8 RBC 3.46 L Hgb 10.7 L Hct 31.1 L MCV 90 MCH 30.9 MCHC 34.3 RDW 13.5 Plt Count 138 L Seg Neutrophils % 86.7 H Lymphocytes % 9.8 L Monocytes % 3.0 Eosinophils % 0.3 Basophils % 0.2 Absolute Neutrophils 8.5 H Absolute Lymphocytes 1.0 Absolute Monocytes 0.3 Absolute Eosinophils 0.0 Absolute Basophils 0.0 Carbonic Acid 1.01 L HCO3/H2CO3 Ratio 23:1 ABG pH 7.47 H ABG pCO2 33.7 L ABG pO2 123.7 H ABG HCO3 24.0 ABG O2 Saturation 98.7 H ABG Base Excess 0.7 FiO2 30% Sodium 145.7 H Potassium 4.5 Chloride 110 H Carbon Dioxide 26 Anion Gap 10 BUN 8 Creatinine 0.58 Est GFR ( Amer) > 60 Est GFR (Non-Af Amer) > 60 Glucose 135 H Calcium 8.8 Phosphorus 3.8 Magnesium 2.2 05/22/16 09:00 Tracheal Aspirate Gram Stain - Final 05/22/16 05/22/16 05/22/16 03:27 03:27 07:06 Creatine Kinase 35 Cancelled CK-MB (CK-2) 0.60 Troponin I < 0.012 05/22/16 05/22/16 05/22/16 07:06 08:57 13:52 Creatine Kinase 24 L < 20 L CK-MB (CK-2) 0.68 Troponin I < 0.012 05/22/16 05/22/16 05/22/16 13:52 20:00 20:00 Creatine Kinase < 20 L CK-MB (CK-2) 0.54 0.47 Troponin I < 0.012 < 0.012 Impressions: Head CT 05/21/16 23:20 IMPRESSION: NORMAL BRAIN CT WITHOUT CONTRAST. Chest X-Ray 05/24/16 06:00 IMPRESSION: Tubes and lines in good positioning. No focal infiltrates. No pleural effusion or pneumothorax Assessment & Plan - Diagnosis (1) Acute respiratory failure Qualifiers: Respiratory failure complication: unspecified whether with hypoxia or hypercapnia Qualified Code(s): J96.00 - Acute respiratory failure, unspecified whether with hypoxia or hypercapnia Is this a current diagnosis for this admission?: Yes (2) Sepsis Qualifiers: Sepsis type: sepsis due to unspecified organism Qualified Code(s): A41.9 - Sepsis, unspecified organism Is this a current diagnosis for this admission?: Yes (3) UTI (urinary tract infection) Qualifiers: Urinary tract infection type: acute cystitis Hematuria presence: with hematuria Qualified Code(s): N30.01 - Acute cystitis with hematuria Is this a current diagnosis for this admission?: Yes (4) TCA (tricyclic antidepressant) overdose of undetermined intent Qualifiers: Encounter type: initial encounter Qualified Code(s): T43.014A - Poisoning by tricyclic antidepressants, undetermined, initial encounter Is this a current diagnosis for this admission?: Yes (5) Polysubstance overdose Qualifiers: Encounter type: initial encounter Injury intent: intentional self-harm Qualified Code(s): T50.902A - Poisoning by unspecified drugs, medicaments and biological substances, intentional self-harm, initial encounter Is this a current diagnosis for this admission?: Yes (6) Bipolar 1 disorder Is this a current diagnosis for this admission?: Yes (7) COPD (chronic obstructive pulmonary disease) Qualifiers: COPD type: unspecified COPD Qualified Code(s): J44.9 - Chronic obstructive pulmonary disease, unspecified Is this a current diagnosis for this admission?: Yes (8) Schizoaffective disorder Qualifiers: Schizoaffective disorder type: unspecified Qualified Code(s): F25.9 - Schizoaffective disorder, unspecified Is this a current diagnosis for this admission?: Yes (9) Chronic pain syndrome Is this a current diagnosis for this admission?: Yes - Time Time Spent with patient: 25-34 minutes - Plan Summary Plan Summary: We will add vancomycin to current antibiotics. Follow cultures. Monitor electrolytes. Begin feedings. Continue supportive care. Ventilatory weaning per pulmonary service.
[2016-05-24] MEDS ORDERED: VANCOMYCIN HCL INJ 1000 MG VIAL IV SCH (10:00)
[2016-05-24] MEDS: FAMOTIDINE INJ/PF 20 MG/2 ML SDV IV SCH ×2 (10:47→21:09)
[2016-05-24] MEDS: POLYETHYLENE GLYCOL 3350 POWDER 17 GM/1 PACKET NG SCH (10:48)
[2016-05-24] MEDS: FOLIC ACID 1 MG TABLET NG SCH (10:48)
[2016-05-24] MEDS: LACTOBACILLUS ACIDOPHILUS 250 MG TAB NG SCH (10:48)
[2016-05-24] MEDS: THIAMINE HCL 100 MG TABLET NG SCH (10:48)
[2016-05-24] MEDS: VANCOMYCIN HCL 1,500 MG in DEXTROSE 5%-WATER 250 ML IV SCH ×2 (11:15→22:18)
[2016-05-24] MEDS: MULTIVITAMIN ORAL LIQUID 60 ML NG SCH (11:15)
--- NOTE | 2016-05-24 13:10 | PSYCHOLOGICAL NOTE ---
Psych Note - Psych Note Psych Note: The patient is a 45-year-old female, past medical history schizophrenia, bipolar , presents by EMS after she was found unresponsive by her son. Empty bottles of her Seroquel and Klonopin next to her. Her son also says that she uses Percocet. EMS arrived and found her unresponsive. Patient is currently intubated; unable to conduct evaluation. Evaluation will occur at a later time.
[2016-05-24] MEDS ORDERED: DEXAMETHASONE SOD PHOSPHATE INJ 4 MG/1 ML VIAL IV ONE (16:00)
[2016-05-24] MEDS ORDERED: DEXAMETHASONE SOD PHOSPHATE INJ 4 MG/1 ML VIAL ONE (16:01)
--- NOTE | 2016-05-24 19:43 | PDOC PROGRESS REPORT ---
Subjective Progress Note for:: 05/24/16 Subjective:: intubated Physical Exam Vital Signs: Temp Pulse Resp BP Pulse Ox 97.9 F 84 14 87/59 L 96 05/24/16 06:15 05/24/16 02:10 05/24/16 06:15 05/24/16 06:05 05/24/16 06:15 Intake & Output 05/23/16 05/24/16 05/25/16 06:59 06:59 06:59 Intake Total 6629 3687 Output Total 4249 3886 Balance 2454 -1413 Weight 68.8 kg 67 kg General appearance: PRESENT: no acute distress, disheveled, obese Head exam: PRESENT: atraumatic, normocephalic Eye exam: PRESENT: conjunctiva pale, EOMI Mouth exam: PRESENT: dry mucosa, neck supple, other - ET tube Neck exam: ABSENT: carotid bruit, JVD, lymphadenopathy, thyromegaly Respiratory exam: PRESENT: decreased breath sounds, prolonged expiratory phas, rhonchi, symmetrical, unlabored Cardiovascular exam: PRESENT: RRR, +S1, +S2 Pulses: PRESENT: normal radial pulses GI/Abdominal exam: PRESENT: normal bowel sounds, soft. ABSENT: distended, guarding, mass, organolmegaly, rebound, tenderness Rectal exam: PRESENT: deferred Gentrourinary exam: PRESENT: indwelling catheter Musculoskeletal exam: PRESENT: normal inspection Skin exam: PRESENT: dry Results Laboratory Results: 05/24/16 04:58 05/24/16 04:58 05/24/16 05/24/16 05/24/16 04:58 04:58 04:58 WBC 9.8 RBC 3.46 L Hgb 10.7 L Hct 31.1 L MCV 90 MCH 30.9 MCHC 34.3 RDW 13.5 Plt Count 138 L Seg Neutrophils % 86.7 H Lymphocytes % 9.8 L Monocytes % 3.0 Eosinophils % 0.3 Basophils % 0.2 Absolute Neutrophils 8.5 H Absolute Lymphocytes 1.0 Absolute Monocytes 0.3 Absolute Eosinophils 0.0 Absolute Basophils 0.0 Carbonic Acid 1.01 L HCO3/H2CO3 Ratio 23:1 ABG pH 7.47 H ABG pCO2 33.7 L ABG pO2 123.7 H ABG HCO3 24.0 ABG O2 Saturation 98.7 H ABG Base Excess 0.7 FiO2 30% Sodium 145.7 H Potassium 4.5 Chloride 110 H Carbon Dioxide 26 Anion Gap 10 BUN 8 Creatinine 0.58 Est GFR ( Amer) > 60 Est GFR (Non-Af Amer) > 60 Glucose 135 H Calcium 8.8 Phosphorus 3.8 Magnesium 2.2 05/22/16 09:00 Tracheal Aspirate Gram Stain - Final 05/22/16 05/22/16 05/22/16 03:27 03:27 07:06 Creatine Kinase 35 Cancelled CK-MB (CK-2) 0.60 Troponin I < 0.012 05/22/16 05/22/16 05/22/16 07:06 08:57 13:52 Creatine Kinase 24 L < 20 L CK-MB (CK-2) 0.68 Troponin I < 0.012 05/22/16 05/22/16 05/22/16 13:52 20:00 20:00 Creatine Kinase < 20 L CK-MB (CK-2) 0.54 0.47 Troponin I < 0.012 < 0.012 Impressions: Head CT 05/21/16 23:20 IMPRESSION: NORMAL BRAIN CT WITHOUT CONTRAST. Chest X-Ray 05/24/16 06:00 IMPRESSION: Tubes and lines in good positioning. No focal infiltrates. No pleural effusion or pneumothorax Assessment & Plan - Diagnosis (1) Acute respiratory failure Qualifiers: Respiratory failure complication: unspecified whether with hypoxia or hypercapnia Qualified Code(s): J96.00 - Acute respiratory failure, unspecified whether with hypoxia or hypercapnia Is this a current diagnosis for this admission?: Yes (2) Sepsis Qualifiers: Sepsis type: sepsis due to unspecified organism Qualified Code(s): A41.9 - Sepsis, unspecified organism Is this a current diagnosis for this admission?: Yes (3) TCA (tricyclic antidepressant) overdose of undetermined intent Qualifiers: Encounter type: initial encounter Qualified Code(s): T43.014A - Poisoning by tricyclic antidepressants, undetermined, initial encounter Is this a current diagnosis for this admission?: Yes (4) Unresponsive state Is this a current diagnosis for this admission?: Yes - Time Critical Time spent with patient: 25-34 minutes
[2016-05-25] MEDS: PIPERACILLIN SODIUM/TAZOBACTAM 4.5 GM in NORMAL SALINE 100 ML IV SCH ×2 (00:58→05:03)
[2016-05-25] MEDS: IPRATROPIUM/ALBUTEROL 0.5-2.5 MG/3 ML AMPUL NEB SCH ×4 (04:29→20:18)
[2016-05-25 04:56] LABS: ARTERIAL BLOOD BASE EXCESS 4.3 mmol/L; ARTERIAL BLOOD O2 SATURATION 99.6 % (94-98)
[2016-05-25 04:58] LABS: ABSOLUTE LYMPHOCYTES (AUTO) 1.3 10^3/uL (0.5-4.7); ABSOLUTE MONOCYTES (AUTO) 0.4 10^3/uL (0.1-1.4); ABSOLUTE NEUT (AUTO) 9.4 10^3/uL (1.7-8.2); BASOPHILS % (AUTO) 0.1 % (0-2); HEMATOCRIT 31.5 % (36.0-47.0); HEMOGLOBIN 10.7 g/dL (12.0-15.5); HGB HCT DIFFERENCE 0.6; LYMPHOCYTES % (AUTO) 11.5 % (13-45); MEAN CORPUSCULAR HEMOGLOBIN 30.3 pg (27.0-33.4); MEAN CORPUSCULAR HGB CONC 34.1 g/dL (32.0-36.0); MEAN CORPUSCULAR VOLUME 89 fl (80-97); MONOCYTES % (AUTO) 3.7 % (3-13); RED BLOOD COUNT 3.54 10^6/uL (3.72-5.28); RED CELL DISTRIBUTION WIDTH 13.1 % (11.5-14.0); SEGMENTED NEUTROPHILS % (AUTO) 84.7 % (42-78); WHITE BLOOD COUNT 11.1 10^3/uL (4.0-10.5)
[2016-05-25] MEDS: HYDROCORTISONE SOD SUCCINATE INJ/PF 100 MG/2 ML SDV IV SCH (05:03)
[2016-05-25] MEDS: HEPARIN SOD (PORCINE) 5,000 UNIT/ML 1 ML SYRINGE SUBCUT SCH ×3 (05:04→21:36)
[2016-05-25] MEDS: POTASSI CL 20 MEQ/D5-1/2NS 1L 1,000 ML IV PRN (05:05)
[2016-05-25 05:25] LABS: ALANINE AMINOTRANSFERASE 24 U/L (9-52); ALBUMIN 3.3 g/dL (3.5-5.0); ALKALINE PHOSPHATASE 74 U/L (38-126); AMYLASE 51 U/L (30-110); ANION GAP 9 (5-19); ASPARTATE AMINO TRANSFERASE 19 U/L (14-36); BILIRUBIN,DIRECT 0.2 mg/dL (0.0-0.4); BILIRUBIN,TOTAL 0.5 mg/dL (0.2-1.3); BLOOD UREA NITROGEN 9 mg/dL (7-20); CALCIUM 9.4 mg/dL (8.4-10.2); CARBON DIOXIDE 28 mmol/L (22-30); CHLORIDE 111 mmol/L (98-107); CREATININE RESULT 0.65 mg/dL (0.52-1.25); GLUCOSE 110 mg/dL (75-110); LIPASE 84.5 U/L (23-300); MAGNESIUM 2.3 mg/dL (1.6-2.3); PHOSPHORUS 3.6 mg/dL (2.5-4.5); POTASSIUM 3.9 mmol/L (3.6-5.0); SODIUM 148.2 mmol/L (137-145); TOTAL PROTEIN 6.2 g/dL (6.3-8.2); TRIGLYCERIDES 156 mg/dL (<150)
[2016-05-25] MEDS: TOBRAMYCIN SULFATE NEB 40 MG/ML 30 ML NEB SCH (07:53)
--- NOTE | 2016-05-25 09:49 | PDOC PROGRESS REPORT ---
Subjective Progress Note for:: 05/25/16 Subjective:: Patient is now extubated. Patient reports being depressed initially that's why she took overdose of unrecalled medications. Patient currently denies any suicidal ideations. Patient was involuntarily committed in the emergency room. Denies any shortness of breath, chills or fever, diarrhea. Able to tolerate oral intake. Physical Exam Vital Signs: Temp Pulse Resp BP Pulse Ox 98.4 F 85 19 150/90 H 98 05/25/16 06:00 05/25/16 08:00 05/25/16 06:00 05/25/16 03:25 05/25/16 06:00 Intake & Output 05/24/16 05/25/16 05/26/16 06:59 06:59 06:59 Intake Total 3687 3169 Output Total 5100 4875 350 Balance -1326 -170 -350 Weight 67 kg 66.5 kg General appearance: PRESENT: no acute distress, cooperative, well-developed Head exam: PRESENT: normocephalic Eye exam: PRESENT: conjunctiva pink, EOMI Mouth exam: PRESENT: moist, neck supple Neck exam: ABSENT: JVD Respiratory exam: PRESENT: clear to auscultation escobar. ABSENT: rhonchi, wheezes Cardiovascular exam: PRESENT: RRR. ABSENT: gallop GI/Abdominal exam: PRESENT: normal bowel sounds, soft. ABSENT: distended Extremities exam: PRESENT: other - Trace lower extremity edema Neurological exam: PRESENT: alert, awake, oriented to situation Psychiatric exam: ABSENT: homicidal ideation, suicidal ideation Skin exam: PRESENT: dry, warm. ABSENT: cyanosis Results Laboratory Results: 05/25/16 04:35 05/25/16 04:35 05/24/16 05/25/16 05/25/16 16:40 04:35 04:35 WBC RBC Hgb Hct MCV MCH MCHC RDW Plt Count Seg Neutrophils % Lymphocytes % Monocytes % Eosinophils % Basophils % Absolute Neutrophils Absolute Lymphocytes Absolute Monocytes Absolute Eosinophils Absolute Basophils Carbonic Acid 1.07 HCO3/H2CO3 Ratio 25:1 ABG pH 7.50 H ABG pCO2 35.5 ABG pO2 224.8 H ABG HCO3 27.2 H ABG O2 Saturation 99.6 H ABG Base Excess 4.3 FiO2 ROOM AIR Sodium 148.2 H Potassium 3.9 Chloride 111 H Carbon Dioxide 28 Anion Gap 9 BUN 9 Creatinine 0.65 Est GFR ( Amer) > 60 Est GFR (Non-Af Amer) > 60 Glucose 110 Calcium 9.4 Phosphorus 3.6 Magnesium 2.3 Total Bilirubin 0.5 AST 19 ALT 24 Alkaline Phosphatase 74 Total Protein 6.2 L Albumin 3.3 L Triglycerides 156 H Amylase 51 Lipase 84.5 Stool Occult Blood NEGATIVE 05/25/16 04:35 WBC 11.1 H RBC 3.54 L Hgb 10.7 L Hct 31.5 L MCV 89 MCH 30.3 MCHC 34.1 RDW 13.1 Plt Count 190 Seg Neutrophils % 84.7 H Lymphocytes % 11.5 L Monocytes % 3.7 Eosinophils % 0.0 Basophils % 0.1 Absolute Neutrophils 9.4 H Absolute Lymphocytes 1.3 Absolute Monocytes 0.4 Absolute Eosinophils 0.0 Absolute Basophils 0.0 Carbonic Acid HCO3/H2CO3 Ratio ABG pH ABG pCO2 ABG pO2 ABG HCO3 ABG O2 Saturation ABG Base Excess FiO2 Sodium Potassium Chloride Carbon Dioxide Anion Gap BUN Creatinine Est GFR ( Amer) Est GFR (Non-Af Amer) Glucose Calcium Phosphorus Magnesium Total Bilirubin AST ALT Alkaline Phosphatase Total Protein Albumin Triglycerides Amylase Lipase Stool Occult Blood 05/22/16 09:00 Tracheal Aspirate Gram Stain - Final 05/22/16 09:00 Tracheal Aspirate Sputum Culture - Final Klebsiella Oxytoca Mrsa (Meth Resis Staph Aureus) Streptococcus Pneumoniae C.albicans/C.dubliniensis Reduced Normal Eve 05/22/16 05/22/16 05/22/16 03:27 03:27 07:06 Creatine Kinase 35 Cancelled CK-MB (CK-2) 0.60 Troponin I < 0.012 05/22/16 05/22/16 05/22/16 07:06 08:57 13:52 Creatine Kinase 24 L < 20 L CK-MB (CK-2) 0.68 Troponin I < 0.012 05/22/16 05/22/16 05/22/16 13:52 20:00 20:00 Creatine Kinase < 20 L CK-MB (CK-2) 0.54 0.47 Troponin I < 0.012 < 0.012 Impressions: Head CT 05/21/16 23:20 IMPRESSION: NORMAL BRAIN CT WITHOUT CONTRAST. Chest X-Ray 05/25/16 06:00 IMPRESSION: NO ACUTE RADIOGRAPHIC FINDING IN THE CHEST. Central line. Assessment & Plan - Diagnosis (1) Acute respiratory failure Qualifiers: Respiratory failure complication: unspecified whether with hypoxia or hypercapnia Qualified Code(s): J96.00 - Acute respiratory failure, unspecified whether with hypoxia or hypercapnia Is this a current diagnosis for this admission?: Yes (2) Sepsis Qualifiers: Sepsis type: sepsis due to unspecified organism Qualified Code(s): A41.9 - Sepsis, unspecified organism Is this a current diagnosis for this admission?: Yes (3) UTI (urinary tract infection) Qualifiers: Urinary tract infection type: acute cystitis Hematuria presence: with hematuria Qualified Code(s): N30.01 - Acute cystitis with hematuria Is this a current diagnosis for this admission?: Yes (4) TCA (tricyclic antidepressant) overdose of undetermined intent Qualifiers: Encounter type: initial encounter Qualified Code(s): T43.014A - Poisoning by tricyclic antidepressants, undetermined, initial encounter Is this a current diagnosis for this admission?: Yes (5) Polysubstance overdose Qualifiers: Encounter type: initial encounter Injury intent: intentional self-harm Qualified Code(s): T50.902A - Poisoning by unspecified drugs, medicaments and biological substances, intentional self-harm, initial encounter Is this a current diagnosis for this admission?: Yes (6) Bipolar 1 disorder Is this a current diagnosis for this admission?: Yes (7) COPD (chronic obstructive pulmonary disease) Qualifiers: COPD type: unspecified COPD Qualified Code(s): J44.9 - Chronic obstructive pulmonary disease, unspecified Is this a current diagnosis for this admission?: Yes (8) Schizoaffective disorder Qualifiers: Schizoaffective disorder type: unspecified Qualified Code(s): F25.9 - Schizoaffective disorder, unspecified Is this a current diagnosis for this admission?: Yes (9) Chronic pain syndrome Is this a current diagnosis for this admission?: Yes - Time Time Spent with patient: 25-34 minutes - Plan Summary Plan Summary: We will transfer the patient to telemetry floor. Advance diet. Discontinue Casiano catheter. Reconsult psychiatry for the overdose. Discontinue intravenous antibiotic and switched to oral Levaquin and clindamycin based on sensitivities. We will likewise discontinue intravenous steroids. Elevated WBC probably related to the steroids. Discontinue intravenous fluids as well. Continues sitter until cleared by psychiatry service.
[2016-05-25] MEDS: FOLIC ACID 1 MG TABLET NG SCH (10:13)
[2016-05-25] MEDS: LEVOFLOXACIN 750 MG TABLET PO SCH (10:13)
[2016-05-25] MEDS: THIAMINE HCL 100 MG TABLET NG SCH (10:13)
[2016-05-25] MEDS: LACTOBACILLUS ACIDOPHILUS 250 MG TAB NG SCH (10:13)
[2016-05-25] MEDS: FAMOTIDINE INJ/PF 20 MG/2 ML SDV IV SCH ×2 (10:14→21:36)
[2016-05-25] MEDS: MULTIVITAMIN ORAL LIQUID 60 ML NG SCH (10:24)
[2016-05-25] MEDS: POLYETHYLENE GLYCOL 3350 POWDER 17 GM/1 PACKET NG SCH (10:24)
[2016-05-25] MEDS: CLINDAMYCIN HCL 150 MG CAPSULE PO SCH ×3 (11:18→23:11)
[2016-05-25] MEDS: ACETAMINOPHEN 325 MG TABLET PO PRN (23:10)
[2016-05-26] MEDS: IPRATROPIUM/ALBUTEROL 0.5-2.5 MG/3 ML AMPUL NEB SCH (02:09)
[2016-05-26] MEDS ORDERED: IPRATROPIUM/ALBUTEROL 0.5-2.5 MG/3 ML AMPUL NEB PRN (03:10)
[2016-05-26] MEDS: HEPARIN SOD (PORCINE) 5,000 UNIT/ML 1 ML SYRINGE SUBCUT SCH ×2 (05:48→15:10)
[2016-05-26] MEDS: ACETAMINOPHEN 325 MG TABLET PO PRN (05:48)
[2016-05-26] MEDS: CLINDAMYCIN HCL 150 MG CAPSULE PO SCH (05:48)
[2016-05-26 06:26] LABS: ANION GAP 12 (5-19); BLOOD UREA NITROGEN 10 mg/dL (7-20); CALCIUM 9.4 mg/dL (8.4-10.2); CARBON DIOXIDE 29 mmol/L (22-30); CHLORIDE 104 mmol/L (98-107); CREATININE RESULT 0.71 mg/dL (0.52-1.25); GLUCOSE 88 mg/dL (75-110); POTASSIUM 3.4 mmol/L (3.6-5.0); SODIUM 145.3 mmol/L (137-145)
[2016-05-26] MEDS ORDERED: LACTOBACILLUS ACIDOPHILUS 250 MG TAB PO SCH (10:00)
[2016-05-26] MEDS ORDERED: FOLIC ACID 1 MG TABLET PO SCH (10:00)
[2016-05-26] MEDS ORDERED: THIAMINE HCL 100 MG TABLET PO SCH (10:00)
[2016-05-26] MEDS ORDERED: POLYETHYLENE GLYCOL 3350 POWDER 17 GM/1 PACKET PO SCH (10:00)
[2016-05-26] MEDS: FAMOTIDINE INJ/PF 20 MG/2 ML SDV IV SCH (10:36)
[2016-05-26] MEDS: LEVOFLOXACIN 750 MG TABLET PO SCH (10:36)
--- NOTE | 2016-05-26 16:25 | PSYCHOLOGICAL NOTE ---
Psych Note - Psych Note Psych Note: AUDRA DUFFY is a 45 year old female with a past medical history of schizophrenia, bipolar disorder, previous suicide attempt, chronic pain, anemia and unclear lung and liver lesions according to family members. History of is obtained by multiple family members who state Patient been her usual state of health until approximately 6 hours prior to presentation noted to have cycles of excessive somnolence and euphoria for several weeks and was found unresponsive with spontaneous respirations and breathing with empty bottles of Seroquel, Klonopin and Percocet. She's brought to the emergency room via EMS and is noted to be without gag reflex corneal reflex or pupillary reflex after Narcan and intubated for airway protection. Family members admit previous episode of drug abuse, substance abuse and suicide ideation with wrist cutting remotely. She is not known to be on any new medications. Patient states that she was "tired and overwhelmed." She continued disclosed that "I don't know why I swallowed the pills." She states that she does not want to because she has 5 beautiful children and 6 group beautiful grandchildren. She continued to disclose that she feels bad that she put everybody through this. Patient admits to substance abuse to include alcohol and cocaine. Patient states that she used cocaine for the first time by before this episode. Patient disclosed that she has outpatient services provided through [facility] and her next appointment is 05/30/16. She continue disclosed that she has done therapy in the past to include dialectical behavioral therapy. Patient states that she did DBT therapy approximate 5 years ago however thinks it is time that she brushes up on those skills. Patient is alert and orientated to person, place, time and circumstance. Mood is euthymic with congruent affect. Patient denies suicidal and homicidal ideation. Patient denies auditory and visual hallucinations; patient is not demonstrating behaviour what would be congruent to responding to internal stimuli. No delusions are noted. Thought process is organized and linear. Eye contact was well maintained. Intellectual abilities appear to be within average range. Attention and concentration is good. Insight, judgment, and impulse control is currently good however is effected situational by substance abuse. 296.80 (F31.9) unspecified bipolar and related disorder per history provided by patient 311 (F32.9) unspecified depressive disorder per history provided by patient 300.3 (F42) obsessive-compulsive disorder per history provided by patient 309.81 (F43.10) posttraumatic stress disorder per history provided by patient Impression\\plan: Patient is recommended for rescind of IVC is considered psychiatrically cleared for discharge. Patient currently denies suicidal ideation disclosing that "I want to live." Patient has established outpatient services through provider through [facility] with appointment scheduled in 4 days on 05/30/2016. Patient is demonstrating very insightful reflection on overdose event and has been able to demonstrate problem-solving skills to include revisiting DBT therapy. Dr. Varghese was consulted on the care and management of this patient; attending physician is in agreement with recommendations and disposition.
[2016-05-26] MEDS ORDERED: POTASSIUM CHLORIDE 10 MEQ TABLET.SA PO ONE (16:30)
--- NOTE | 2016-05-26 17:27 | PDOC DISCHARGE SUMMARY ---
General - Admit/Disc Date/PCP Admission Date/Primary Care Provider: 05/22/16 02:31 Discharge Date: 05/26/16 - Discharge Diagnosis (1) Acute respiratory failure Is this a current diagnosis for this admission?: Yes (2) Sepsis Is this a current diagnosis for this admission?: Yes (3) UTI (urinary tract infection) Is this a current diagnosis for this admission?: Yes (4) TCA (tricyclic antidepressant) overdose of undetermined intent Is this a current diagnosis for this admission?: Yes (5) Polysubstance overdose Is this a current diagnosis for this admission?: Yes (6) Bipolar 1 disorder Is this a current diagnosis for this admission?: Yes (7) COPD (chronic obstructive pulmonary disease) Is this a current diagnosis for this admission?: Yes (8) Schizoaffective disorder Is this a current diagnosis for this admission?: Yes (9) Chronic pain syndrome Is this a current diagnosis for this admission?: Yes - Additional Information Resuscitation Status: Full Code Discharge Diet: Regular Discharge Activity: Activity As Tolerated, Balance Activity w/Rest Home Medications: Acidoph/L.bulg/Bif.b/S.thermop [Bacid Caplet] 1 tab PO BID #20 tablet 05/26/16 Clindamycin HCl [Cleocin 150 mg Capsule] 300 mg PO Q6 #42 capsule 05/26/16 Levofloxacin [Levaquin 750 mg Tablet] 750 mg PO DAILY #7 tablet 05/26/16 Additional Information: Stop cocaine History of Present Illness Patient complains of: Altered mental status History of Present Illness: AUDRA DUFFY is a 45 year old female, with history of bipolar disorder reported schizophrenia chronic pain syndrome brought to the hospital because of altered mental status. Reportedly 6 hours prior to admission the patient was found to be unresponsive but with spontaneous respirations and breathing, had periods of of euphoria and somnolence for several weeks prior to the incident. She had episodes of suicide attempt in the past. Empty bottles of Seroquel, klonopin and Percocet were found. The ambulance was called and the patient was intubated and brought to the emergency room and was referred for admission. She was IVC 'd. For details please refer to history and physical examination performed by the admitting physician. Hospital Course Hospital Course: The patient was admitted to the intensive care unit. The patient was maintained on ventilator, pulmonary was consulted for further management. Surgery was controlled and for central line placement. Patient was started on intravenous sedatives for sedation. Patient developed hypotension requiring vasopressors and intravenous hydration. WBC noted to trend up. A diagnosis of sepsis was made. Broad-spectrum antibiotics were started and cultures were performed. Urine culture grew Klebsiella pneumonia. Sputum culture grew MRSA, streptococcus, and Klebsiella oxytoca. Patient was on vancomycin as well. Her chest x-ray serially was monitored showing no definite infiltrate at all. Other workup included head CT scan showing no acute abnormality and UDS (+) for coccaine. . Psychiatry was consulted as the patient was involuntarily committed. There was also question of adrenal insufficiency and patient was placed on steroids. We doubt above treatment measures the patient improved and was successfully extubated. Postextubation, patient did well and has denied suicidal ideations or homicidal ideations. Patient does not even remember the medication sheet. Patient improved and was transition to telemetry floor from ICU. Intravenous antibiotics were shifted to oral. Intravenous fluids were discontinued. No hypotension was noted and eventually the steroids was likewise discontinued. Psychiatry was then reconsulted and the patient is no longer suicidal and has good insight, therefore IVC was rescinded. She was cleared to be discharged home with the family and follow-up at [facility] in 4 days. The rest of the hospital stays unremarkable. Physical Exam Vital Signs: Temp Pulse Resp BP Pulse Ox 98.4 F 116 H 18 133/99 H 99 05/26/16 16:01 05/26/16 16:01 05/26/16 16:01 05/26/16 16:01 05/26/16 16:01 Intake & Output 05/25/16 05/26/16 05/27/16 06:59 06:59 06:59 Intake Total 3169 880 Output Total 4875 600 Balance -1706 280 Weight 66.5 kg 65.9 kg General appearance: PRESENT: no acute distress, cooperative Head exam: PRESENT: normocephalic Eye exam: PRESENT: EOMI Mouth exam: PRESENT: moist, neck supple Neck exam: ABSENT: JVD Respiratory exam: PRESENT: clear to auscultation escobar. ABSENT: rhonchi, wheezes Cardiovascular exam: PRESENT: RRR. ABSENT: gallop GI/Abdominal exam: PRESENT: normal bowel sounds, soft. ABSENT: distended, tenderness Extremities exam: ABSENT: pedal edema Musculoskeletal exam: PRESENT: ambulatory Neurological exam: PRESENT: alert, awake, oriented to person, oriented to place , oriented to time, oriented to situation Psychiatric exam: PRESENT: appropriate affect. ABSENT: agitated, homicidal ideation, suicidal ideation Focused psych exam: ABSENT: euphoric, flight of ideas, paranoid, psychomotor agitation, restlessness Skin exam: PRESENT: dry, warm. ABSENT: cyanosis Results Laboratory Results: 05/25/16 04:35 05/26/16 05:45 05/26/16 05:45 Sodium 145.3 H Potassium 3.4 L Chloride 104 Carbon Dioxide 29 Anion Gap 12 BUN 10 Creatinine 0.71 Est GFR ( Amer) > 60 Est GFR (Non-Af Amer) > 60 Glucose 88 Calcium 9.4 05/22/16 05/22/16 05/22/16 03:27 03:27 07:06 Creatine Kinase 35 Cancelled CK-MB (CK-2) 0.60 Troponin I < 0.012 05/22/16 05/22/16 05/22/16 07:06 08:57 13:52 Creatine Kinase 24 L < 20 L CK-MB (CK-2) 0.68 Troponin I < 0.012 05/22/16 05/22/16 05/22/16 13:52 20:00 20:00 Creatine Kinase < 20 L CK-MB (CK-2) 0.54 0.47 Troponin I < 0.012 < 0.012 Impressions: Head CT 05/21/16 23:20 IMPRESSION: NORMAL BRAIN CT WITHOUT CONTRAST. Chest X-Ray 05/25/16 06:00 IMPRESSION: NO ACUTE RADIOGRAPHIC FINDING IN THE CHEST. Central line. Qualifiers PATEINT BEING DISCHARGED WITH ANY OF THE FOLLOWING DIAGNOSIS?: No Plan Discharge Plan: Follow-up with primary care physician in one week. Follow-up with psychiatrist/ [facility] in 4 days(05/30/16). Time Spent: Less than 30 Minutes
[2016-05-26 17:45] VITALS: BP 135/90
--- NOTE | 2016-05-28 17:33 | PDOC PROGRESS REPORT ---
Subjective Progress Note for:: 05/25/16 Subjective:: intubated Physical Exam Vital Signs: Temp Pulse Resp BP Pulse Ox 98.4 F 88 19 150/90 H 98 05/25/16 06:00 05/25/16 04:59 05/25/16 06:00 05/25/16 03:25 05/25/16 06:00 Intake & Output 05/24/16 05/25/16 05/26/16 06:59 06:59 06:59 Intake Total 3684 1975 Output Total 2101 6143 Balance -1413 -1705 Weight 67 kg 66.5 kg General appearance: PRESENT: no acute distress, disheveled Head exam: PRESENT: atraumatic, normocephalic Eye exam: PRESENT: conjunctiva pale Mouth exam: PRESENT: dry mucosa, neck supple Neck exam: ABSENT: carotid bruit, JVD, lymphadenopathy, thyromegaly Respiratory exam: PRESENT: decreased breath sounds, rhonchi, unlabored Cardiovascular exam: PRESENT: RRR, +S1, +S2 Pulses: PRESENT: normal radial pulses GI/Abdominal exam: PRESENT: normal bowel sounds, soft. ABSENT: distended, guarding, mass, organolmegaly, rebound, tenderness Rectal exam: PRESENT: deferred Gentrourinary exam: PRESENT: indwelling catheter Results Laboratory Results: 05/25/16 04:35 05/25/16 04:35 05/24/16 05/25/16 05/25/16 16:40 04:35 04:35 WBC RBC Hgb Hct MCV MCH MCHC RDW Plt Count Seg Neutrophils % Lymphocytes % Monocytes % Eosinophils % Basophils % Absolute Neutrophils Absolute Lymphocytes Absolute Monocytes Absolute Eosinophils Absolute Basophils Carbonic Acid 1.07 HCO3/H2CO3 Ratio 25:1 ABG pH 7.50 H ABG pCO2 35.5 ABG pO2 224.8 H ABG HCO3 27.2 H ABG O2 Saturation 99.6 H ABG Base Excess 4.3 FiO2 ROOM AIR Sodium 148.2 H Potassium 3.9 Chloride 111 H Carbon Dioxide 28 Anion Gap 9 BUN 9 Creatinine 0.65 Est GFR ( Amer) > 60 Est GFR (Non-Af Amer) > 60 Glucose 110 Calcium 9.4 Phosphorus 3.6 Magnesium 2.3 Total Bilirubin 0.5 AST 19 ALT 24 Alkaline Phosphatase 74 Total Protein 6.2 L Albumin 3.3 L Triglycerides 156 H Amylase 51 Lipase 84.5 Stool Occult Blood NEGATIVE 05/25/16 04:35 WBC 11.1 H RBC 3.54 L Hgb 10.7 L Hct 31.5 L MCV 89 MCH 30.3 MCHC 34.1 RDW 13.1 Plt Count 190 Seg Neutrophils % 84.7 H Lymphocytes % 11.5 L Monocytes % 3.7 Eosinophils % 0.0 Basophils % 0.1 Absolute Neutrophils 9.4 H Absolute Lymphocytes 1.3 Absolute Monocytes 0.4 Absolute Eosinophils 0.0 Absolute Basophils 0.0 Carbonic Acid HCO3/H2CO3 Ratio ABG pH ABG pCO2 ABG pO2 ABG HCO3 ABG O2 Saturation ABG Base Excess FiO2 Sodium Potassium Chloride Carbon Dioxide Anion Gap BUN Creatinine Est GFR ( Amer) Est GFR (Non-Af Amer) Glucose Calcium Phosphorus Magnesium Total Bilirubin AST ALT Alkaline Phosphatase Total Protein Albumin Triglycerides Amylase Lipase Stool Occult Blood 05/22/16 09:00 Tracheal Aspirate Gram Stain - Final 05/22/16 05/22/16 05/22/16 03:27 03:27 07:06 Creatine Kinase 35 Cancelled CK-MB (CK-2) 0.60 Troponin I < 0.012 05/22/16 05/22/16 05/22/16 07:06 08:57 13:52 Creatine Kinase 24 L < 20 L CK-MB (CK-2) 0.68 Troponin I < 0.012 05/22/16 05/22/16 05/22/16 13:52 20:00 20:00 Creatine Kinase < 20 L CK-MB (CK-2) 0.54 0.47 Troponin I < 0.012 < 0.012 Impressions: Head CT 05/21/16 23:20 IMPRESSION: NORMAL BRAIN CT WITHOUT CONTRAST. Chest X-Ray 05/25/16 06:00 IMPRESSION: NO ACUTE RADIOGRAPHIC FINDING IN THE CHEST. Central line. Assessment & Plan - Diagnosis (1) Acute respiratory failure Qualifiers: Respiratory failure complication: unspecified whether with hypoxia or hypercapnia Qualified Code(s): J96.00 - Acute respiratory failure, unspecified whether with hypoxia or hypercapnia Is this a current diagnosis for this admission?: Yes (2) Sepsis Qualifiers: Sepsis type: sepsis due to unspecified organism Qualified Code(s): A41.9 - Sepsis, unspecified organism Is this a current diagnosis for this admission?: Yes (3) TCA (tricyclic antidepressant) overdose of undetermined intent Qualifiers: Encounter type: initial encounter Qualified Code(s): T43.014A - Poisoning by tricyclic antidepressants, undetermined, initial encounter Is this a current diagnosis for this admission?: Yes (4) Unresponsive state Is this a current diagnosis for this admission?: No
== END 2016-05-26 18:09 | disposition home or self-care (01) | DRG 917 ==
LOC: ER 23:10 → UNDOADMIN 05-22 01:40 → EH 05-22 01:40 → ICU 05-22 02:35 → 4N 05-25 12:28
PROVIDERS: ADMIT Internal Medicine; ATTEND Internal Medicine
PROC: 0BH17EZ Insertion of Endotracheal Airway into Trachea, Via Natural or Artificial Opening (ICD-10-PCS; principal; 2016-05-21)
PROC: 5A1945Z Respiratory Ventilation, 24-96 Consecutive Hours (ICD-10-PCS; 2016-05-21)
PROC: 02H633Z Insertion of Infusion Device into Right Atrium, Percutaneous Approach (ICD-10-PCS; 2016-05-22)
PROC: B244ZZZ Ultrasonography of Right Heart (ICD-10-PCS; 2016-05-22)
DX: T43.592A Poisoning by other antipsychotics and neuroleptics, intentional self-harm, initial encounter (principal); J96.00 Acute respiratory failure, unspecified whether with hypoxia or hypercapnia; A41.9 Sepsis, unspecified organism; R40.20 Unspecified coma; N30.01 Acute cystitis with hematuria; T43.014A Poisoning by tricyclic antidepressants, undetermined, initial encounter; F20.9 Schizophrenia, unspecified; F31.9 Bipolar disorder, unspecified; F42.9 Obsessive-compulsive disorder, unspecified; F43.10 Post-traumatic stress disorder, unspecified; G89.4 Chronic pain syndrome; B96.1 Klebsiella pneumoniae [K. pneumoniae] as the cause of diseases classified elsewhere; B95.62 Methicillin resistant Staphylococcus aureus infection as the cause of diseases classified elsewhere; B95.5 Unspecified streptococcus as the cause of diseases classified elsewhere; B96.89 Other specified bacterial agents as the cause of diseases classified elsewhere; T68.XXXA Hypothermia, initial encounter; F14.90 Cocaine use, unspecified, uncomplicated; F17.210 Nicotine dependence, cigarettes, uncomplicated; Y92.009 Unspecified place in unspecified non-institutional (private) residence as the place of occurrence of the external cause; Z88.2 Allergy status to sulfonamides; Z88.5 Allergy status to narcotic agent; Z88.8 Allergy status to other drugs, medicaments and biological substances
CPT/HCPCS: 36415; 70450; 71010; 80048; 80074; 80076; 80307; 81001; 81025; 82140; 82150; 82272; 82533; 82550; 82553; 82803; 82962; 83605; 83690; 83735; 83880; 84100; 84134; 84439; 84443; 84478; 84484; 85025; 85610; 86592; 86701; 87040; 87070; 87077; 87086; 87088; 87186; 87205; 87491; 87591; 93005; 93010; 94002; 94003; 94799; 99291; C1751; J1100; J1642; J1644; J1720; J2060; J2250; J2543; J2704; J3010; J3370; J3480; J3490; J7030; J7060; J7620; J7685; S0028

== ENCOUNTER 2016-11-07 21:03 | Emergency (ER) | payer MEDICAID ==
--- NOTE | 2016-11-07 22:12 | RADIOLOGY REPORT (SQ) ---
EXAM DESCRIPTION: HAND RIGHT 3 VIEWS COMPLETED DATE/TIME: 11/07/2016 9:44 pm REASON FOR STUDY: crush injury COMPARISON: None. EXAM PARAMETERS: NUMBER OF VIEWS: Three views. TECHNIQUE: AP, lateral and oblique radiographic images acquired of the right hand. LIMITATIONS: None. FINDINGS: MINERALIZATION: Normal. BONES: No acute fracture or dislocation. No worrisome bone lesions. JOINTS: No effusions. SOFT TISSUES: No soft tissue swelling. No foreign body. OTHER: No other significant finding. IMPRESSION: NO RADIOGRAPHIC EVIDENCE OF ACUTE INJURY. TECHNICAL DOCUMENTATION: JOB ID: [id number] [employer]- All Rights Reserved
[2016-11-07] MEDS ORDERED: IBUPROFEN 800 MG TABLET PO ONE (22:38)
--- NOTE | 2016-11-07 22:44 | ER Document Report ---
HPI - HPI Patient complains to provider of: Hand injury Onset: This evening Onset/Duration: Sudden Quality of pain: Achy Pain Level: 2 Context: Patient states that she smashed her hand between boxes of tile while moving a stack of tile. Patient is left-hand dominant. Patient complains of pain to the right hand and wrist area. Associated Symptoms: Other - Right hand and wrist pain Exacerbated by: Movement Relieved by: Denies Similar symptoms previously: No Recently seen / treated by doctor: No - ROS ROS below otherwise negative: Yes Systems Reviewed and Negative: Yes All other systems reviewed and negative - CONSTITUTIONAL Constitutional: DENIES: Fever - NEURO Neurology: DENIES: Headache, Weakness - CARDIOVASCULAR Cardiovascular: DENIES: Chest pain - RESPIRATORY Respiratory: DENIES: Trouble Breathing, Coughing - GASTROINTESTINAL Gastrointestinal: DENIES: Nausea, Patient vomiting - REPRODUCTIVE Reproductive: DENIES: : - MUSCULOSKELETAL Musculoskeletal: REPORTS: Extremity pain, Swelling - DERM Skin Color: Normal Skin Problems: None Past Medical History - General Information source: Patient - Social History Smoking Status: Current Every Day Smoker Frequency of alcohol use: None Drug Abuse: None Occupation: None Lives with: Spouse/Significant other Family History: Reviewed & Not Pertinent, Other - Unobtainable Patient has suicidal ideation: No Patient has homicidal ideation: No - Past Medical History Cardiac Medical History: Denies: Hx Coronary Artery Disease, Hx Heart Attack, Hx Hypertension Pulmonary Medical History: Reports: Hx Asthma, Hx Bronchitis, Hx COPD - nodules on bilateral lungs, Other - Pulmonary nodule Denies: Hx Pneumonia Neurological Medical History: Denies: Hx Cerebrovascular Accident, Hx Seizures Renal/ Medical History: Denies: Hx Peritoneal Dialysis Musculoskeltal Medical History: Reports Hx Arthritis Psychiatric Medical History: Reports: Hx Bipolar Disorder, Hx Depression, Hx Schizoaffective Disorder Past Surgical History: Reports: Hx Gynecologic Surgery - D&C, Hx Hysterectomy - Immunizations Hx Diphtheria, Pertussis, Tetanus Vaccination: Yes Vertical Provider Document - CONSTITUTIONAL Agree With Documented VS: Yes Exam Limitations: No Limitations General Appearance: WD/WN, No Apparent Distress - INFECTION CONTROL TRAVEL OUTSIDE OF THE [place] IN LAST 30 DAYS: No - HEENT HEENT: Atraumatic, Normocephalic - NECK Neck: Normal Inspection - RESPIRATORY Respiratory: Breath Sounds Normal, No Respiratory Distress O2 Sat by Pulse Oximetry: 99 - CARDIOVASCULAR Cardiovascular: Regular Rate, Regular Rhythm Pulses: Normal: Radial - MUSCULOSKELETAL/EXTREMETIES Musculoskeletal/Extremeties: MAEW, Tender - Right hand tenderness over base of right second and third metacarpals into the dorsal aspect of right wrist, no obvious edema, deformity or ecchymosis - NEURO Level of Consciousness: Awake, Alert, Appropriate Motor/Sensory: No Motor Deficit, No Sensory Deficit - DERM Integumentary: Warm, Dry Course - Re-evaluation Re-evalutation: 11/08/16 01:41 Patient's blood pressure 90/60s. Patient asymptomatic with her blood pressure reading. Patient received 1 L IV fluids and is tolerating oral fluids without any difficulty. Patient denies any complaints aside from wrist pain. Patient ambulates without any difficulty. Patient encouraged to follow-up with her primary doctor to have her blood pressure rechecked. - Vital Signs Vital signs: Temp Pulse Resp BP Pulse Ox 98.4 F 81 18 90/66 L 99 11/07/16 21:21 11/07/16 21:21 11/07/16 21:21 11/07/16 21:21 11/07/16 21:21 - Diagnostic Test Radiology reviewed: Image reviewed, Reports reviewed Procedures - Immobilization Right Wrist Pre-Proc Neuro Vasc Exam: Normal Immobilizer type: Cock-up Performed by: PCT Post-Proc Neuro Vasc Exam: Normal Alignment checked and good: Yes Discharge - Discharge Clinical Impression: crush injury of hand and wrist Condition: Stable Disposition: HOME, SELF-CARE Instructions: Crush Injury ([facility]), Ice & Elevation ([facility]), Temporary Splint ([facility]) Additional Instructions: Return immediately for any new or worsening symptoms Followup with your primary care provider, call tomorrow to make a followup appointment Follow-up with orthopedic doctor for any continued pain or problems Prescriptions: Naproxen [Naprosyn 250 Nmg Tablet] 1 tab PO BID #14 tablet Referrals: BRI PHILLIPS MD [Primary Care Provider] - Follow up as needed [facility] [Provider Group] - Follow up as needed
[2016-11-07] MEDS ORDERED: NORMAL SALINE 1000 ML 1,000 ML IV ONE (23:09)
[2016-11-08 01:51] VITALS: BP 90/60
== END 2016-11-08 01:30 | disposition home or self-care (01) ==
LOC: ER 21:03
DX: S67.41XA Crushing injury of right wrist and hand, initial encounter (principal); W23.1XXA Caught, crushed, jammed, or pinched between stationary objects, initial encounter; F17.200 Nicotine dependence, unspecified, uncomplicated; Z90.710 Acquired absence of both cervix and uterus
CPT/HCPCS: 99283; 73130; L3908; J3490; J7030

== ENCOUNTER 2017-05-05 02:40 | Inpatient (IN) | payer MEDICAID ==
[2017-05-05] MEDS ORDERED: NORMAL SALINE 1000 ML 1,000 ML IV ONE ×2 (03:22→04:49)
[2017-05-05] MEDS ORDERED: KETOROLAC TROMETHAMINE INJ/PF 30 MG/1 ML SDV IV ONE (03:22)
[2017-05-05 03:44] LABS: COLOR,URINE YELLOW
[2017-05-05 03:45] LABS: APPEARANCE,URINE SLIGHTLY-CLOUDY; BILIRUBIN,URINE NEGATIVE (NEGATIVE); GLUCOSE, URINE NEGATIVE (NEGATIVE); KETONES,URINE NEGATIVE (NEGATIVE); LEUKOCYTE ESTERASE,URINE LARGE (NEGATIVE); NITRITE,URINE NEGATIVE (NEGATIVE); PROTEIN,URINE 100 mg/dL (NEGATIVE); URINE SPECIFIC GRAVITY 1.022; UROBILINOGEN,URINE NEGATIVE mg/dL (<2.0)
[2017-05-05 03:51] LABS: ABSOLUTE EOSINOPHILS # (AUTO) 0.2 10^3/uL (0.0-0.6); ABSOLUTE LYMPHOCYTES (AUTO) 1.2 10^3/uL (0.5-4.7); ABSOLUTE MONOCYTES (AUTO) 0.8 10^3/uL (0.1-1.4); ABSOLUTE NEUT (AUTO) 10.4 10^3/uL (1.7-8.2); BASOPHILS % (AUTO) 0.2 % (0-2); EOSINOPHILS % (AUTO) 1.2 % (0-6); HEMATOCRIT 36.5 % (36.0-47.0); HEMOGLOBIN 12.8 g/dL (12.0-15.5); LYMPHOCYTES % (AUTO) 9.6 % (13-45); MEAN CORPUSCULAR HEMOGLOBIN 30.4 pg (27.0-33.4); MEAN CORPUSCULAR VOLUME 87 fl (80-97); MONOCYTES % (AUTO) 6.1 % (3-13); PLATELET COUNT 221 10^3/uL (150-450); SEGMENTED NEUTROPHILS % (AUTO) 82.9 % (42-78); TOTAL CELLS COUNTED % (AUTO) 100 %; WHITE BLOOD COUNT 12.5 10^3/uL (4.0-10.5)
[2017-05-05 04:02] LABS: ANION GAP 11 (5-19); BLOOD UREA NITROGEN 15 mg/dL (7-20); CALCIUM 9.8 mg/dL (8.4-10.2); CARBON DIOXIDE 30 mmol/L (22-30); CHLORIDE 98 mmol/L (98-107); GLUCOSE 129 mg/dL (75-110); POTASSIUM 3.4 mmol/L (3.6-5.0); SODIUM 139.3 mmol/L (137-145)
[2017-05-05] MEDS ORDERED: CEFTRIAXONE INJ 1000 MG VIAL IV ONE (04:18)
--- NOTE | 2017-05-05 04:31 | RADIOLOGY REPORT (SQ) ---
EXAM DESCRIPTION: CT LTD RENAL STONE PROTOCOL ON CLINICAL HISTORY: 46 years Female, left flank pain COMPARISON: None. TECHNIQUE: No contrast. Coronal and sagittal reformat. This exam was performed according to our departmental dose-optimization program, which includes automated exposure control, adjustment of the mA and/or kV according to patient size and/or use of iterative reconstruction technique. FINDINGS: Two stacked, 0.3 cm and 0.2 cm stones at the distal left ureter level of S2. Mild left hydroureter, minimal left hydronephrosis, and mild left inferior perinephric fat stranding. Unenhanced inferior chest, abdominopelvic structures, and musculoskeleton appear otherwise grossly unremarkable. Impression: Two left distal ureteral stones measuring up to 0.3 cm each with low-grade obstruction.
--- NOTE | 2017-05-05 04:51 | ER Document Report ---
ED General - General Chief Complaint: Possible Kidney Stone Stated Complaint: FLANK PAIN Time Seen by Provider: 05/05/17 03:14 Notes: Patient is 46-year-old female with a history of kidney stones who presents with severe left-sided flank pain. She says she has had some dysuria for several days now and then tonight developed severe left-sided flank pain and nausea. She has had to receive ureteral stents in the past. She denies any fevers. She denies any diarrhea. She has no other complaints at this time. She says pain does feel very similar to her previous kidney stones. Contrast patient's blood pressure is low. Patient says that her blood pressures always very low and sometimes it is very hard for her doctor to we will obtain a blood pressure on her because it runs very low. TRAVEL OUTSIDE OF THE [place] IN LAST 30 DAYS: No - Related Data Allergies/Adverse Reactions: codeine [Codeine] Allergy (Verified 08/12/14 11:07) throat swells, blisters on tongue hydrocodone bitartrate [From Vicodin] Allergy (Verified 08/12/14 11:08) VOMITING sulfamethoxazole [From Septra] Allergy (Verified 08/12/14 11:07) throat swells, blisters in mouth trimethoprim [From Septra] Allergy (Verified 08/12/14 11:07) throat swells, blisters in mouth Past Medical History - Social History Smoking Status: Current Every Day Smoker Chew tobacco use (# tins/day): No Frequency of alcohol use: None Drug Abuse: None Family History: Reviewed & Not Pertinent, Other - Unobtainable Patient has suicidal ideation: No Patient has homicidal ideation: No - Past Medical History Cardiac Medical History: Denies: Hx Coronary Artery Disease, Hx Heart Attack, Hx Hypertension Pulmonary Medical History: Reports: Hx Asthma, Hx Bronchitis, Hx COPD - nodules on bilateral lungs Denies: Hx Pneumonia Neurological Medical History: Denies: Hx Cerebrovascular Accident, Hx Seizures Renal/ Medical History: Reports: Hx Kidney Stones - with stent placement. Denies: Hx Peritoneal Dialysis Musculoskeltal Medical History: Reports Hx Arthritis Psychiatric Medical History: Reports: Hx Bipolar Disorder, Hx Depression, Hx Schizoaffective Disorder Past Surgical History: Reports: Hx Gynecologic Surgery - D&C, Hx Hysterectomy - Immunizations Hx Diphtheria, Pertussis, Tetanus Vaccination: Yes Review of Systems - Review of Systems Notes: My Normal Review Basic REVIEW OF SYSTEMS: CONSTITUTIONAL : Denies fever, chills, or sweats. Denies recent illness. EENT: Denies eye, ear, throat, or mouth pain or symptoms. Denies nasal or sinus congestion. RESPIRATORY: Denies cough, cold, or chest congestion. Denies shortness of breath, difficulty breathing, or wheezing. GASTROINTESTINAL: Flank pain, some nausea. Urinary: Dysuria MUSCULOSKELETAL: Denies neck or back pain or joint pain or swelling. SKIN: Denies rash or skin lesions. NEUROLOGICAL: Denies altered mental status or loss of consciousness. Denies headache. Denies weakness or paralysis or loss of use of either side. Denies problems with gait or speech. Denies sensory or motor loss. ALL OTHER SYSTEMS REVIEWED AND NEGATIVE. Physical Exam - Vital signs Vitals: Temp Pulse Resp BP Pulse Ox 98 F 116 H 18 77/57 L 97 05/05/17 02:50 05/05/17 02:50 05/05/17 02:50 05/05/17 02:50 05/05/17 02:50 - Notes Notes: General Appearance: Well nourished, alert, cooperative, no acute distress, moderate obvious discomfort. Vitals: reviewed, See vital signs table. Head: no swelling or tenderness to the head Eyes: PERRL, EOMI, Conjuctiva clear Mouth: No decreasd moisture Lungs: No wheezing, No rales, No rhonci, No accessory muscle use, good air exchange bilaterally. Heart: Normal rate, Regular rythm, No murmur, no rub Abdomen: Normal BS, soft, No rigidity, pain to palpation of her left flank and left lower quadrant of abdomen., No guarding, no rebound, no abdominal masses, no organomegaly Back: Negative Thee's sign bilaterally. Extremities: strength 5/5 in all extremities, good pulses in all extremities, no swelling or tenderness in the extremities, no edema. Skin: warm, dry, appropriate color, no rash Neuro: speech clear, oriented x 3, normal affect, responds appropriately to questions. Course - Re-evaluation Re-evalutation: 05/05/17 04:51 On reevaluation patient is feeling much improved. Clinically she looks well. Her pain is improved. Her heart rate is down to 83 after receiving the Toradol. She does have continued hypertension. Patient continues to swear that this blood pressure is normal for her. Previous blood pressure of comparison shows that her blood pressure on her previous visit here was in the low 90s systolically. Currently is 82/58. I will give her another liter of IV fluids. I have called and spoken with Dr. Jimenez, hospitalist, who agrees to admit the patient with consult to the urologist. Has received IV antibiotics. Dictation of this chart was performed using voice recognition software; therefore, there may be some unintended grammatical errors. - Vital Signs Vital signs: Temp Pulse Resp BP Pulse Ox 98 F 76 16 78/56 L 97 05/05/17 02:50 05/05/17 05:51 05/05/17 05:51 05/05/17 05:51 05/05/17 05:51 - Laboratory Result Diagrams: 05/05/17 03:41 05/05/17 03:41 Laboratory results interpreted by me: 05/05/17 05/05/17 05/05/17 03:00 03:41 03:41 WBC 12.5 H Seg Neutrophils % 82.9 H Lymphocytes % 9.6 L Absolute Neutrophils 10.4 H Potassium 3.4 L Glucose 129 H Urine Protein 100 H Urine Blood LARGE H Ur Leukocyte Esterase LARGE H Discharge - Discharge Clinical Impression: Kidney stone on left side UTI (urinary tract infection) Qualifiers: Urinary tract infection type: site unspecified Hematuria presence: with hematuria Qualified Code(s): N39.0 - Urinary tract infection, site not specified ; R31.9 - Hematuria, unspecified; R31.9 - Hematuria, unspecified Condition: Stable Disposition: ADMITTED INPATIENT Admitting Provider: Hospitalist Unit Admitted: Telemetry
[2017-05-05] MEDS ORDERED: MAG HYDROX/AL HYDROX/SIMETH SUSP 30 ML UDCUP PO PRN (04:59)
[2017-05-05] MEDS ORDERED: ONDANSETRON HCL INJ/PF 4 MG/2 ML SDV IV PRN (04:59)
[2017-05-05] MEDS ORDERED: TAMSULOSIN HCL 0.4 MG CAP.SR.24H PO ONE (04:59)
[2017-05-05] MEDS ORDERED: ACETAMINOPHEN 325 MG TABLET PO PRN (04:59)
[2017-05-05] MEDS ORDERED: IPRATROPIUM/ALBUTEROL 0.5-2.5 MG/3 ML AMPUL NEB PRN (04:59)
[2017-05-05] MEDS ORDERED: NORMAL SALINE 1000 ML 1,000 ML IV PRN (05:00)
[2017-05-05] MEDS ORDERED: NICOTINE 14 MG/24 HR PATCH.TD24 TD ONE ×2 (05:16→22:15)
[2017-05-05] MEDS: HEPARIN SOD (PORCINE) 5,000 UNIT/ML 1 ML SYRINGE SUBCUT SCH ×3 (06:19→22:46)
--- NOTE | 2017-05-05 06:39 | PDOC H&P ---
History of Present Illness Admission Date/PCP: 05/05/17 05:14 BRI PHILLIPS Patient complains of: Left-sided flank pain History of Present Illness: AUDRA DUFFY is a 46 year old female with a past medical history of depression, anxiety with recent suicide attempt by medication, tobacco dependence, recurrent nephrolithiasis. Patient presents with 1 week of dysuria subjective fever and chills nausea without vomiting prompting evaluation emergency room where she is found to have hypotension, leukocytosis and pain on the right lower quadrant. Imaging reveals 0.2 and 0.3 mild hydro-ureter. She started on empiric antibiotics and referred to the hospitalist for admission. Patient admits for previous episodes requiring stenting. Past Medical History Cardiac Medical History: Denies: Coronary Artery Disease, Myocardial Infarction, Hypertension Pulmonary Medical History: Reports: Asthma, Bronchitis, Chronic Obstructive Pulmonary Disease (COPD) - nodules on bilateral lungs Denies: Pneumonia Neurological Medical History: Denies: Seizures Musculoskeltal Medical History: Reports: Arthritis Psychiatric Medical History: Reports: Bipolar Disorder, Depression, General Anxiety Disorder, Schizoaffective Disorder, Tobacco Dependency, Other - History of suicide attempt by medications Hematology: Reports: Anemia Past Surgical History Past Surgical History: Reports: Hysterectomy Social History Information Source: Patient, [facility] Records Smoking Status: Current Every Day Smoker Frequency of Alcohol Use: Social Hx Recreational Drug Use: Yes Drugs: Cocaine Hx Prescription Drug Abuse: Yes - Advance Directive Resuscitation Status: Full Code Family History Family History: Reviewed & Not Pertinent, Other - Unobtainable Parental Family History Reviewed: Yes Children Family History Reviewed: Yes Sibling(s) Family History Reviewed.: Yes Medication/Allergy Home Medications: Acidoph/L.bulg/Bif.b/S.thermop [Bacid Caplet] 1 tab PO BID #20 tablet 05/26/16 Clindamycin HCl [Cleocin 150 mg Capsule] 300 mg PO Q6 #42 capsule 05/26/16 Levofloxacin [Levaquin 750 mg Tablet] 750 mg PO DAILY #7 tablet 05/26/16 Naproxen [Naprosyn 250 Nmg Tablet] 1 tab PO BID #14 tablet 11/07/16 Allergies/Adverse Reactions: codeine [Codeine] Allergy (Verified 08/12/14 11:07) throat swells, blisters on tongue hydrocodone bitartrate [From Vicodin] Allergy (Verified 08/12/14 11:08) VOMITING sulfamethoxazole [From ] Allergy (Verified 08/12/14 11:07) throat swells, blisters in mouth trimethoprim [From Octra] Allergy (Verified 08/12/14 11:07) throat swells, blisters in mouth Review of Systems Constitutional: ABSENT: chills, fever(s), headache(s), weight gain, weight loss Eyes: ABSENT: visual disturbances Ears: ABSENT: hearing changes Cardiovascular: ABSENT: chest pain, dyspnea on exertion, edema, orthropnea, palpitations Respiratory: ABSENT: cough, hemoptysis Gastrointestinal: ABSENT: abdominal pain, constipation, diarrhea, hematemesis, hematochezia, nausea, vomiting Genitourinary: ABSENT: dysuria, hematuria Musculoskeletal: ABSENT: joint swelling Integumentary: ABSENT: rash, wounds Neurological: ABSENT: abnormal gait, abnormal speech, confusion, dizziness, focal weakness, syncope Psychiatric: ABSENT: anxiety, depression, homidical ideation, suicidal ideation Endocrine: ABSENT: cold intolerance, heat intolerance, polydipsia, polyuria Hematologic/Lymphatic: ABSENT: easy bleeding, easy bruising Physical Exam Vital Signs: Temp Pulse Resp BP Pulse Ox 98 F 76 16 78/56 L 97 05/05/17 02:50 05/05/17 05:51 05/05/17 05:51 05/05/17 05:51 05/05/17 05:51 General appearance: PRESENT: no acute distress, cooperative, well-developed, well-nourished Head exam: PRESENT: atraumatic, normocephalic Eye exam: PRESENT: conjunctiva pink, EOMI, PERRLA. ABSENT: scleral icterus Ear exam: PRESENT: normal external ear exam Mouth exam: PRESENT: moist, tongue midline Neck exam: ABSENT: carotid bruit, JVD, lymphadenopathy, thyromegaly Respiratory exam: PRESENT: clear to auscultation escobar. ABSENT: rales, rhonchi, wheezes Cardiovascular exam: PRESENT: RRR. ABSENT: diastolic murmur, rubs, systolic murmur Pulses: PRESENT: normal dorsalis pedis pul Vascular exam: PRESENT: normal capillary refill GI/Abdominal exam: PRESENT: hypoactive bowel sounds, normal bowel sounds, soft, tenderness - Right lower quadrant and right sided flank pain. ABSENT: distended , guarding, mass, organolmegaly, rebound Rectal exam: PRESENT: deferred Extremities exam: PRESENT: full ROM. ABSENT: calf tenderness, clubbing, pedal edema Neurological exam: PRESENT: alert, awake, oriented to person, oriented to place , oriented to time, oriented to situation, CN II-XII grossly intact. ABSENT: motor sensory deficit Psychiatric exam: PRESENT: appropriate affect, normal mood. ABSENT: homicidal ideation, suicidal ideation Skin exam: PRESENT: dry, intact, warm. ABSENT: cyanosis, rash Assessment & Plan - Diagnosis (1) Kidney stone on left side Is this a current diagnosis for this admission?: Yes Plan: Symptoms on the right by exam contrary to imaging results. Empiric antibiotics initiated IV fluid challenge, Flomax. Follow-up CBC and urine culture. Consider urology consult (2) UTI (urinary tract infection) Qualifiers: Urinary tract infection type: site unspecified Hematuria presence: with hematuria Qualified Code(s): N39.0 - Urinary tract infection, site not specified; R31.9 - Hematuria, unspecified; R31.9 - Hematuria, unspecified Is this a current diagnosis for this admission?: Yes Plan: Empiric Rocephin initiated follow-up CBC and urine culture (3) Bipolar 1 disorder Is this a current diagnosis for this admission?: Yes Plan: History of polypharmacy avoidance of narcotics (4) Chronic pain syndrome Is this a current diagnosis for this admission?: Yes Plan: History of polypharmacy with suicide attempt by medication. Avoid narcotics. - Time Time Spent: 30 to 50 Minutes
[2017-05-05] MEDS ORDERED: CEFTRIAXONE SODIUM 1,000 MG in NORMAL SALINE 100 ML IV SCH (10:00)
[2017-05-05] MEDS: KETOROLAC TROMETHAMINE INJ/PF 30 MG/1 ML SDV IV PRN ×2 (10:00→22:46)
[2017-05-05] MEDS: DOCUSATE SODIUM 100 MG CAPSULE PO SCH ×2 (10:00→18:24)
[2017-05-05] MEDS ORDERED: DEXTROSE 50%-WATER 25 GM/50 ML DISP.SYRIN IV PRN ×2 (12:21)
[2017-05-05] MEDS ORDERED: DEXTROSE 40% GEL 15 GM TUBE PO PRN ×2 (12:21)
[2017-05-05] MEDS ORDERED: GLUCAGON,HUMAN RECOMB 1 MG INJ SUBCUT PRN (12:21)
[2017-05-05] MEDS: NORMAL SALINE 1000 ML 1,000 ML IV PRN ×2 (14:00→22:45)
--- NOTE | 2017-05-05 21:52 | PDOC PROGRESS REPORT ---
Subjective Progress Note for:: 05/05/17 Subjective:: Patient presents with leukocytosis, in the setting of a left renal stone and mild left sided hydroureter. Urology was consulted for their help in the case. Patient has been started on IV ceftriaxone. Patient does have a low blood pressure of 86 over 60s, which she describes as her normal state. Patient is notably walking and talking without difficulty. Patient does have significant left flank pain that is corresponding with her left-sided renal stone. Reason For Visit: SEPSIS HYDRONEPHROSIS,PYELONEPHRITIS Physical Exam Vital Signs: Temp Pulse Resp BP Pulse Ox 100.8 F H 76 19 109/74 99 05/05/17 19:46 05/05/17 05:51 05/05/17 20:01 05/05/17 20:01 05/05/17 19:31 General appearance: PRESENT: mild distress Head exam: PRESENT: atraumatic, normocephalic Eye exam: PRESENT: EOMI, PERRLA Mouth exam: PRESENT: moist, neck supple Neck exam: PRESENT: full ROM. ABSENT: JVD, tenderness Respiratory exam: ABSENT: accessory muscle use, rales, rhonchi, wheezes Cardiovascular exam: PRESENT: RRR, +S1, +S2 Pulses: PRESENT: normal radial pulses, normal dorsalis pedis pul Vascular exam: PRESENT: normal capillary refill. ABSENT: pallor GI/Abdominal exam: PRESENT: tenderness - Left lower quadrant mild tenderness. ABSENT: ascites, distended, mass, rigid Extremities exam: ABSENT: calf tenderness, clubbing, pedal edema Musculoskeletal exam: PRESENT: ambulatory, full ROM, other - Left flank pain on exam Neurological exam: PRESENT: alert, oriented to person, oriented to place, oriented to time, oriented to situation, CN II-XII grossly intact Psychiatric exam: ABSENT: agitated, anxious Focused psych exam: ABSENT: catatonic, delusional, paranoid Skin exam: ABSENT: abrasion, cyanosis, mottled Assessment & Plan - Plan Summary Plan Summary: (1) Kidney stone on left side Urine culture result pending Patient's exam correlates with her left-sided stone and hydroureter. Consulted urology for their involvement in this case. Continue IV Rocephin. (2) UTI (urinary tract infection) Empiric Rocephin Urine culture pending (3) Bipolar 1 disorder History of polypharmacy avoidance of narcotics (4) Chronic pain syndrome History of polypharmacy suicide attempt by medication
[2017-05-06] MEDS: NORMAL SALINE 1000 ML 1,000 ML IV PRN (00:20)
[2017-05-06] MEDS ORDERED: NORMAL SALINE 1000 ML 1,000 ML IV ONE (00:30)
[2017-05-06] MEDS: KETOROLAC TROMETHAMINE INJ/PF 30 MG/1 ML SDV IV PRN (05:56)
[2017-05-06] MEDS: HEPARIN SOD (PORCINE) 5,000 UNIT/ML 1 ML SYRINGE SUBCUT SCH ×2 (05:56→13:07)
[2017-05-06 06:18] LABS: ABSOLUTE EOSINOPHILS # (AUTO) 0.1 10^3/uL (0.0-0.6); ABSOLUTE LYMPHOCYTES (AUTO) 1.2 10^3/uL (0.5-4.7); ABSOLUTE MONOCYTES (AUTO) 0.7 10^3/uL (0.1-1.4); BASOPHILS % (AUTO) 0.4 % (0-2); EOSINOPHILS % (AUTO) 1.8 % (0-6); HEMATOCRIT 33.7 % (36.0-47.0); HEMOGLOBIN 11.3 g/dL (12.0-15.5); LYMPHOCYTES % (AUTO) 19.3 % (13-45); MEAN CORPUSCULAR HEMOGLOBIN 29.7 pg (27.0-33.4); MEAN CORPUSCULAR HGB CONC 33.6 g/dL (32.0-36.0); MEAN CORPUSCULAR VOLUME 88 fl (80-97); MONOCYTES % (AUTO) 11.5 % (3-13); PLATELET COUNT 130 10^3/uL (150-450); RED BLOOD COUNT 3.81 10^6/uL (3.72-5.28); RED CELL DISTRIBUTION WIDTH 13.2 % (11.5-14.0); TOTAL CELLS COUNTED % (AUTO) 100 %
[2017-05-06 06:38] LABS: ANION GAP 6 (5-19); BLOOD UREA NITROGEN 6 mg/dL (7-20); CALCIUM 8.8 mg/dL (8.4-10.2); CARBON DIOXIDE 30 mmol/L (22-30); CHLORIDE 108 mmol/L (98-107); GLUCOSE 104 mg/dL (75-110); POTASSIUM 3.7 mmol/L (3.6-5.0); SODIUM 143.7 mmol/L (137-145)
[2017-05-06] MEDS ORDERED: PROPOFOL INJ 200 MG/20 ML VIAL IV ONE (07:39)
[2017-05-06] MEDS ORDERED: FENTANYL CITRATE INJ/PF 100 MCG/2 ML AMPUL ONE ×2 (07:39→08:58)
[2017-05-06] MEDS ORDERED: MIDAZOLAM 2 MG/2 ML INJ ONE (07:39)
[2017-05-06] MEDS ORDERED: CEFTRIAXONE 1 GM/D5W RTU 1 GM/50 ML RTUPB IV SCH (08:00)
[2017-05-06] MEDS ORDERED: CEFTRIAXONE SODIUM 1,000 MG in NORMAL SALINE 100 ML IV SCH (08:00)
[2017-05-06] MEDS ORDERED: LIDOCAINE 2% JELLY 30 ML TUBE ONE (08:02)
--- NOTE | 2017-05-06 08:49 | Operative Report ---
Operative Report DATE OF SURGERY: 05/06/17 PREOPERATIVE DIAGNOSIS: left ureteral stones POSTOPERATIVE DIAGNOSIS: Same OPERATION: Cystoscopy, placement of left ureteral stent SURGEON: LARISSA NEAL II ANESTHESIA: GA ESTIMATED BLOOD LOSS: minimal PROCEDURE: The patient was taken to the cystoscopy suite and placed into the supine position on the cystoscopy table. After adequate general anesthesia, she was placed into the lithotomy position and prepped and draped in the usual sterile fashion. Cystoscopy was carried out with a 21 [place] panendoscope. The left ureteral orifice was visualized. Utilizing a 0.035 Glidewire, the left ureteral orifice was cannulated and under direct vision and fluoroscopy, the wire was placed into the left renal pelvis. There appeared to be calcifications noted in the distal ureter. The patient then underwent placement of a 4.8 [place] 24 cm double-pigtail stent under fluoroscopic guidance. The cystoscope was removed after the bladder was drained. The patient was returned to PACU in satisfactory condition.
[2017-05-06] MEDS ORDERED: FENTANYL CITRATE INJ/PF 100 MCG/2 ML AMPUL INJ ONE (08:55)
--- NOTE | 2017-05-06 08:57 | RADIOLOGY REPORT (SQ) ---
EXAM DESCRIPTION: NO CHG FLUORO; KUB/ABDOMEN (SINGLE VIEW) COMPLETED DATE/TIME: 05/06/2017 8:48 am REASON FOR STUDY: LEFT STENT PLACEMENT COMPARISON: CT scan FLUOROSCOPY TIME: 1 minutes 23 seconds 1 images saved to PACS. TECHNIQUE: Intra-operative images acquired during surgical procedure to evaluate progress. NUMBER OF IMAGES: 1 LIMITATIONS: None. FINDINGS: Left ureteral stent. IMPRESSION: IMAGE(S) OBTAINED DURING PROCEDURE. COMMENT: Quality ID [id number]: Final reports for procedures using fluoroscopy that document radiation exp osure indices, or exposure time and number of fluorographic images (if radiation exposure indices are not available) Please consult full operative report of the attending physician for description of the procedure. TECHNICAL DOCUMENTATION: JOB ID: [id number] [employer]- All Rights Reserved Reading location - IP/workstation name: [email or web address]
--- NOTE | 2017-05-06 08:57 | RADIOLOGY REPORT (SQ) ---
EXAM DESCRIPTION: NO CHG FLUORO; KUB/ABDOMEN (SINGLE VIEW) COMPLETED DATE/TIME: 05/06/2017 8:48 am REASON FOR STUDY: LEFT STENT PLACEMENT COMPARISON: CT scan FLUOROSCOPY TIME: 1 minutes 23 seconds 1 images saved to PACS. TECHNIQUE: Intra-operative images acquired during surgical procedure to evaluate progress. NUMBER OF IMAGES: 1 LIMITATIONS: None. FINDINGS: Left ureteral stent. IMPRESSION: IMAGE(S) OBTAINED DURING PROCEDURE. COMMENT: Quality ID 145: Final reports for procedures using fluoroscopy that document radiation exp osure indices, or exposure time and number of fluorographic images (if radiation exposure indices are not available) Please consult full operative report of the attending physician for description of the procedure. TECHNICAL DOCUMENTATION: JOB ID: [id number] [email or web address]- All Rights Reserved Reading location - IP/workstation name: [email or web address]
[2017-05-06] MEDS ORDERED: KETOROLAC TROMETHAMINE INJ/PF 30 MG/1 ML SDV ONE (08:58)
[2017-05-06] MEDS ORDERED: DIPHENHYDRAMINE HCL 50 MG/ML VIAL IV PRN (09:27)
[2017-05-06] MEDS ORDERED: FENTANYL CITRATE INJ/PF 100 MCG/2 ML AMPUL IV PRN ×3 (09:27)
[2017-05-06] MEDS ORDERED: PROMETHAZINE HCL INJ 25 MG/1 ML VIAL IV PRN (09:27)
[2017-05-06] MEDS ORDERED: NICOTINE 14 MG/24 HR PATCH.TD24 TD SCH (10:00)
[2017-05-06] MEDS: DOCUSATE SODIUM 100 MG CAPSULE PO SCH (11:33)
[2017-05-06 11:54] VITALS: BP 106/65
[2017-05-06] MEDS ORDERED: LIDOCAINE 2% INJ-PF (20 MG/ML) 2 ML AMPUL ONE (15:09)
--- NOTE | 2017-05-07 06:05 | PDOC DISCHARGE SUMMARY ---
General - Admit/Disc Date/PCP Admission Date/Primary Care Provider: 05/05/17 05:14 BRI PHILLIPS Discharge Date: 05/06/17 - Discharge Diagnosis (1) UTI (urinary tract infection) Is this a current diagnosis for this admission?: Yes (2) Kidney stone on left side Is this a current diagnosis for this admission?: Yes Summary: with left sided hydroureter, now s/p stent placement (3) Bipolar 1 disorder Is this a current diagnosis for this admission?: Yes (4) Chronic pain syndrome Is this a current diagnosis for this admission?: Yes - Additional Information Resuscitation Status: Full Code Discharge Diet: Regular Discharge Activity: Activity As Tolerated, Balance Activity w/Rest Prescriptions: Acetaminophen [Tylenol 325 mg Tablet] 650 mg PO Q4HP PRN #30 tablet PRN Reason: pain or temperature > 101 Cefdinir [Omnicef 300 mg Capsule] 1 cap PO BID 14 Days #7 capsule Nicotine [Nicoderm 14 mg/24 Hr Transdermal Patch] 1 each TD DAILY 7 Days #7 patch.td24 Oxycodone HCl [Roxicodone] 5 mg PO Q6H PRN #12 tablet PRN Reason: Home Medications: Fluoxetine HCl [Prozac 20 mg Capsule] 20 mg PO DAILY 05/05/17 Hydroxyzine Pamoate [Vistaril 25 mg Capsule] 25 mg PO TIDP PRN 05/05/17 Loratadine [Claritin 10 mg Tablet] 10 mg PO DAILY 05/05/17 Quetiapine Fumarate [Seroquel 100 mg Tablet] 100 mg PO QHS 05/05/17 Quetiapine Fumarate [Seroquel] 50 mg PO DAILY 05/05/17 Trazodone HCl [Desyrel] 100 mg PO QHS 05/05/17 Zolpidem Tartrate [Ambien] 10 mg PO HSP PRN 05/05/17 Acetaminophen [Tylenol 325 mg Tablet] 650 mg PO Q4HP PRN #30 tablet 05/06/17 Cefdinir [Omnicef 300 mg Capsule] 1 cap PO BID 14 Days #7 capsule 05/06/17 Nicotine [Nicoderm 14 mg/24 Hr Transdermal Patch] 1 each TD DAILY 7 Days #7 patch.td24 05/06/17 Oxycodone HCl [Roxicodone] 5 mg PO Q6H PRN #12 tablet 05/06/17 History of Present Illness History of Present Illness: AUDRA DUFFY is a 46 year old female with a past medical history of depression, anxiety with recent suicide attempt by medication, tobacco dependence, recurrent nephrolithiasis. Patient presents with 1 week of dysuria subjective fever and chills nausea without vomiting prompting evaluation emergency room where she is found to have hypotension, leukocytosis and pain on the left lower quadrant. Imaging reveals 0.2 and 0.3 mild hydro-ureter on the left side. She was started on empiric antibiotics and referred to the hospitalist for admission. Patient admits for previous episodes requiring stenting. Hospital Course Hospital Course: Patient presents with leukocytosis, in the setting of a left renal stone and mild left sided hydroureter. Urology was consulted for their help in the case. Patient was given IV ceftriaxone inpatient and her leukocytosis improved. Patient does have a low blood pressure of 86 over 60s, which she describes as her normal BP condition. Patient is notably walking and talking without difficulty. Patient does have significant left flank pain that was corresponding with her left-sided renal stone. Imaging showed a left sided hydroureter. Urology placed a stent in her left ureter. Patient was doing well on the following day, and was sent home with a course of Cefdinir to complete. Physical Exam Vital Signs: Temp Pulse Resp BP Pulse Ox 97.8 F 80 10 L 106/65 100 05/06/17 11:51 05/06/17 11:51 05/06/17 11:51 05/06/17 11:51 05/06/17 11:51 Intake & Output 05/05/17 05/06/17 05/07/17 06:59 06:59 06:59 Intake Total 1999 1150 Output Total 1250 Balance 2000 -100 Weight 69.3 kg General appearance: alert, oriented x3, NAD Head exam: PRESENT: atraumatic, normocephalic Eye exam: PRESENT: EOMI, PERRLA Mouth exam: PRESENT: moist, neck supple Neck exam: PRESENT: full ROM. ABSENT: JVD, tenderness Respiratory exam: ABSENT: accessory muscle use, rales, rhonchi, wheezes Cardiovascular exam: PRESENT: RRR, +S1, +S2 Pulses: PRESENT: normal radial pulses, normal dorsalis pedis pul Vascular exam: PRESENT: normal capillary refill. ABSENT: pallor GI/Abdominal exam: PRESENT: tenderness - Left lower quadrant mild tenderness. ABSENT: ascites, distended, mass, rigid Extremities exam: ABSENT: calf tenderness, clubbing, pedal edema Musculoskeletal exam: PRESENT: ambulatory, full ROM, other - Left flank pain now resolving on exam Neurological exam: PRESENT: alert, oriented to person, oriented to place, oriented to time, oriented to situation, CN II-XII grossly intact Psychiatric exam: ABSENT: agitated, anxious Focused psych exam: ABSENT: catatonic, delusional, paranoid Skin exam: ABSENT: abrasion, cyanosis, mottled Results Laboratory Results: 05/06/17 05:43 05/06/17 05:43 05/06/17 05/06/17 05:43 05:43 WBC 6.0 RBC 3.81 Hgb 11.3 L Hct 33.7 L MCV 88 MCH 29.7 MCHC 33.6 RDW 13.2 Plt Count 130 L Seg Neutrophils % 67.0 Lymphocytes % 19.3 Monocytes % 11.5 Eosinophils % 1.8 Basophils % 0.4 Absolute Neutrophils 4.0 Absolute Lymphocytes 1.2 Absolute Monocytes 0.7 Absolute Eosinophils 0.1 Absolute Basophils 0.0 Sodium 143.7 Potassium 3.7 Chloride 108 H Carbon Dioxide 30 Anion Gap 6 BUN 6 L Creatinine 0.61 Est GFR ( Amer) > 60 Est GFR (Non-Af Amer) > 60 Glucose 104 Calcium 8.8 Impressions: Fluoroscopy 05/06/17 00:00 IMPRESSION: IMAGE(S) OBTAINED DURING PROCEDURE. KUB X-Ray 05/06/17 00:00 IMPRESSION: IMAGE(S) OBTAINED DURING PROCEDURE. Qualifiers - * PATEINT BEING DISCHARGED WITH ANY OF THE FOLLOWING DIAGNOSIS?: No Plan Discharge Plan: f/u with Dr. Silva for stent removal in next 1-2 weeks. Complete course of Cefdinir. Regular Diet Disposition: home activity as tolerated. prn pain medication for resolving left flank pain. Time Spent: Greater than 30 Minutes
== END 2017-05-06 14:16 | disposition home or self-care (01) | DRG 694 ==
LOC: ER 02:40 → EH 05:14 → 3S 21:22
PROVIDERS: ADMIT Internal Medicine; ATTEND Internal Medicine
PROC: 0T774DZ Dilation of Left Ureter with Intraluminal Device, Percutaneous Endoscopic Approach (ICD-10-PCS; principal; 2017-05-06 08:15)
DX: N20.1 Calculus of ureter (principal); N39.0 Urinary tract infection, site not specified; F31.9 Bipolar disorder, unspecified; G89.4 Chronic pain syndrome; J44.9 Chronic obstructive pulmonary disease, unspecified; M19.90 Unspecified osteoarthritis, unspecified site; F25.9 Schizoaffective disorder, unspecified; D64.9 Anemia, unspecified; R03.1 Nonspecific low blood-pressure reading; F41.1 Generalized anxiety disorder; Z91.5 Personal history of self-harm; Z90.710 Acquired absence of both cervix and uterus; F17.200 Nicotine dependence, unspecified, uncomplicated; Z88.5 Allergy status to narcotic agent; Z88.2 Allergy status to sulfonamides; Z88.8 Allergy status to other drugs, medicaments and biological substances
CPT/HCPCS: 36415; 74018; 76380; 80048; 81001; 85025; 87040; 87086; 87088; 87186; 910; 96361; 96374; 99285; J0696; J1644; J1885; J2250; J2704; J3010; J3490; J7030

== ENCOUNTER 2017-05-26 12:10 | Day surgery (SDC) | payer MEDICAID ==
[~2017-05-26 12:10] MED LIST: CEFAZOLIN 1 GM/D5W RTU 1 GM/50 ML RTUPB IV PRN; DEXTROSE 5%-LACTATED RINGERS 1,000 ML IV PRN; PHENYLEPHRINE HCL INJ/PF 10 MG/1 ML SDV ONE
[2017-05-26 12:53] LABS: HEMATOCRIT 37.6 % (36.0-47.0); HEMOGLOBIN 12.8 g/dL (12.0-15.5); MEAN CORPUSCULAR HEMOGLOBIN 29.7 pg (27.0-33.4); MEAN CORPUSCULAR HGB CONC 34.2 g/dL (32.0-36.0); MEAN CORPUSCULAR VOLUME 87 fl (80-97); PLATELET COUNT 303 10^3/uL (150-450); RED BLOOD COUNT 4.33 10^6/uL (3.72-5.28); RED CELL DISTRIBUTION WIDTH 13.4 % (11.5-14.0); WHITE BLOOD COUNT 9.3 10^3/uL (4.0-10.5)
[2017-05-26] MEDS ORDERED: ALBUTEROL SULFATE 0.083% NEB 2.5 MG/3 ML AMPUL NEB ONE (13:03)
[2017-05-26] MEDS ORDERED: MIDAZOLAM 2 MG/2 ML INJ ONE ×2 (13:07→13:47)
[2017-05-26 13:17] LABS: ANION GAP 12 (5-19); BLOOD UREA NITROGEN 15 mg/dL (7-20); CALCIUM 9.9 mg/dL (8.4-10.2); CARBON DIOXIDE 30 mmol/L (22-30); CHLORIDE 101 mmol/L (98-107); GLUCOSE 115 mg/dL (75-110); POTASSIUM 4.1 mmol/L (3.6-5.0); SODIUM 143.2 mmol/L (137-145)
[2017-05-26] MEDS ORDERED: RINGERS SOLUTION,LACTATED 1,000 ML IV PRN (13:21)
[2017-05-26] MEDS ORDERED: LIDOCAINE 2% INJ-PF (20 MG/ML) 10 ML AMPUL ONE (13:47)
[2017-05-26] MEDS ORDERED: FENTANYL CITRATE INJ/PF 100 MCG/2 ML AMPUL ONE ×2 (13:47→15:47)
[2017-05-26] MEDS ORDERED: DEXAMETHASONE SOD PHOSPHATE INJ 4 MG/1 ML VIAL ONE (13:47)
[2017-05-26] MEDS ORDERED: ACETAMINOPHEN 100 ML IV ONE (13:48)
[2017-05-26] MEDS ORDERED: ONDANSETRON HCL INJ/PF 4 MG/2 ML SDV ONE (13:48)
[2017-05-26] MEDS ORDERED: PROPOFOL INJ 200 MG/20 ML VIAL IV ONE (13:48)
[2017-05-26] MEDS ORDERED: MEPERIDINE HCL/PF INJ 25 MG/1 ML DISP.SYRIN IV PRN ×2 (15:38→15:49)
[2017-05-26] MEDS ORDERED: DIPHENHYDRAMINE HCL 50 MG/ML VIAL IV PRN ×2 (15:38→15:49)
[2017-05-26] MEDS ORDERED: PROMETHAZINE HCL INJ 25 MG/1 ML VIAL IV PRN ×4 (15:38→15:49)
[2017-05-26] MEDS ORDERED: MORPHINE SULFATE 10 MG/ML INJ IV PRN ×2 (15:38→15:49)
[2017-05-26] MEDS ORDERED: FENTANYL CITRATE INJ/PF 100 MCG/2 ML AMPUL IV PRN ×6 (15:38→15:49)
[2017-05-26] MEDS ORDERED: OXYCODONE-ACETAMINOPHEN 5-325 MG TABLET PO PRN ×2 (15:38)
[2017-05-26] MEDS ORDERED: KETOROLAC TROMETHAMINE INJ/PF 30 MG/1 ML SDV ONE (15:46)
[2017-05-26] MEDS: HYDROMORPHONE HCL INJ/PF 2 MG/ML AMPULE ONE ×2 (16:05→16:23)
--- NOTE | 2017-05-26 16:13 | RADIOLOGY REPORT (SQ) ---
EXAM DESCRIPTION: PYELOGRAM RETROGRADE COMPLETED DATE/TIME: 05/26/2017 3:42 pm REASON FOR STUDY: LEFT SIDED RETROGRADE PYELOGRAM ASST WITH FLUORO IN OR N20.1 CALCULUS OF URETER COMPARISON: CT dated 05/05/2017. FLUOROSCOPY TIME: 1 minutes 3 seconds. 5 images saved to PACS. TECHNIQUE: Intra-operative images acquired during surgical procedure to evaluate progress. NUMBER OF IMAGES: 5 images. LIMITATIONS: None. FINDINGS: Catheterization and contrast filling of the collecting system on the left. IMPRESSION: IMAGE(S) OBTAINED DURING PROCEDURE. COMMENT: Quality ID [id number]: Final reports for procedures using fluoroscopy that document radiation exp osure indices, or exposure time and number of fluorographic images (if radiation exposure indices are not available) Please consult full operative report of the attending physician for description of the procedure. TECHNICAL DOCUMENTATION: JOB ID: [id number] [employer]- All Rights Reserved Reading location - IP/workstation name: [email or web address]
[2017-05-26 18:44] VITALS: BP 106/72
--- NOTE | 2017-05-29 13:48 | OPERATIVE REPORT E ---
Operative Report NAME: AUDRA DUFFY : 1970 AGE: 46Y DATE OF SURGERY: 05/26/2017 ROOM: PREOPERATIVE DIAGNOSIS: LEFT URETERAL CALCULI. POSTOPERATIVE DIAGNOSES: 1. NO URETERAL CALCULI FOUND. 2. INFLAMMATORY VERSUS NEOPLASTIC CHANGE IN HER LEFT URETER. OPERATION: 1. Cystoscopy with left ureteroscopy (diagnostic) and basket extraction of tissue from left ureter. 2. Left pyelogram. SURGEON: KEYON GOODMAN M.D. RN TELE: None. COMPLICATIONS: None. ESTIMATED BLOOD LOSS: Minimal. TISSUE REMOVED OR ALTERED: Ureteral tissue. INDICATIONS: The patient is a 46-year-old lady who had several 3 mm calcifications in her mid left ureter on her CAT scan. She had a stent indwelling. She is being brought in today for a cystoscopy with extraction of her stones. PROCEDURE: After the patient was identified in the preoperative holding area, she was brought to the operating room. A timeout was performed. The correct patient, side of procedure, and procedure was confirmed. Following this, she was given general anesthesia. She was then prepped and draped in the routine sterile manner. A #23 sheath and panendoscope was inserted into the bladder. Grasping forceps were used to grasp the existing ureteral stent which was brought to the level of the external urethral meatus. A guidewire was then threaded up the lumen of the catheter. A second guidewire was placed. An attempt was made to pass an access sheath but this was unsuccessful. There was resistance at approximately the junction of the middle and lower third of the ureter, so I did not push it. I looked at the area and there was no evidence of stone in the area using a semirigid ureteroscope. I then used a flexible scope and looked in the kidney and did not find any stone. Left pyelogram: I used a total of 5 mL of Omnipaque to fill the left renal pelvis and collecting system. There were no filling defects noted. Impression is normal left pyelogram. I then looked at the ureter as I pulled the scope out. There was some papillary-type tissue noted that was free in the ureter. It is possible this was a reaction to the stones that had been in the ureter, but I did not visualize an inflammatory area as you would normally expect if the stones had been impacted. It is also possible that this tissue was liberated when I attempted to pass the access shealth. There was no evidence of trauma in the ureter that could account for this tissue, though. Accordingly, I captured this tissue in a stone basket and sent it for analysis. There was no papillary lesion per say seen in the ureter other than the loose tissue. I will see her back in followup to discuss this further. The stent was removed and she was returned to recovery room having tolerated this procedure well. DICTATING PHYSICIAN: KEYON GOODMAN M.D. [id number] PHY#: [id number] ID: [id number] JOB#: [id number] ACCT: [id number] cc:KEYON GOODMAN M.D. > MTDD
== END 2017-05-26 18:10 | disposition home or self-care (01) ==
LOC: OROUT 12:10
PROVIDERS: ATTEND Urology
DX: N20.1 Calculus of ureter (principal); F17.210 Nicotine dependence, cigarettes, uncomplicated; J45.909 Unspecified asthma, uncomplicated; R10.9 Unspecified abdominal pain; M19.90 Unspecified osteoarthritis, unspecified site; Z79.899 Other long term (current) drug therapy; Z88.2 Allergy status to sulfonamides; Z88.5 Allergy status to narcotic agent
CPT/HCPCS: 36415; 85027; 80048; 88305 ×2; 88313; 74420; 52310; C1758 ×2; Q9967; J2250; J0690; J1100; J3010; J1885; J1170; J2370; J2405; J2704; J3490; J0131; 910

== ENCOUNTER 2018-10-17 19:10 | Emergency (ER) | payer MEDICAID ==
--- NOTE | 2018-10-17 20:23 | ER Document Report ---
HPI - HPI Patient complains to provider of: wrist pain Time Seen by Provider: 10/17/18 20:14 Onset: Other - 2 days Onset/Duration: Persistent Quality of pain: Achy Pain Level: 4 Context: Patient presents complaining of right wrist pain for the past 2 days. Patient states she has been moving boxes recently which is aggravated her wrist. Patient does report a history of chronic wrist pain and carpal tunnel. Patient spoke with her doctor who states that she may have a flareup of her arthritis but recommended coming to the ER for x-rays. Associated Symptoms: Other - Right wrist pain Exacerbated by: Movement Relieved by: Denies Similar symptoms previously: Yes Recently seen / treated by doctor: No - ROS ROS below otherwise negative: Yes Systems Reviewed and Negative: Yes All other systems reviewed and negative - NEURO Neurology: DENIES: Weakness - REPRODUCTIVE Reproductive: DENIES: : - MUSCULOSKELETAL Musculoskeletal: REPORTS: Extremity pain - DERM Skin Color: Normal Skin Problems: None Past Medical History - General Information source: Patient - Social History Smoking Status: Current Every Day Smoker Smoking Education Provided: Yes Frequency of alcohol use: None Drug Abuse: None Lives with: Spouse/Significant other Family History: Reviewed & Not Pertinent, Other - Unobtainable Pulmonary Medical History: Reports: Hx Asthma, Hx Bronchitis, Hx COPD - nodules on bilateral lungs Denies: Hx Pneumonia Neurological Medical History: Denies: Hx Cerebrovascular Accident, Hx Seizures Renal/ Medical History: Reports: Hx Kidney Stones - with stent placement. Denies: Hx Peritoneal Dialysis Musculoskeletal Medical History: Reports Hx Arthritis - HANDS,NECK Psychiatric Medical History: Reports: Hx Bipolar Disorder, Hx Depression, Hx Schizoaffective Disorder Past Surgical History: Reports: Hx Gynecologic Surgery - D&C, Hx Hysterectomy - Immunizations Hx Diphtheria, Pertussis, Tetanus Vaccination: Yes Vertical Provider Document - CONSTITUTIONAL Agree With Documented VS: Yes Exam Limitations: No Limitations General Appearance: WD/WN, No Apparent Distress - INFECTION CONTROL TRAVEL OUTSIDE OF THE [place] IN LAST 30 DAYS: No - HEENT HEENT: Atraumatic, Normocephalic - NECK Neck: Normal Inspection, Supple - RESPIRATORY Respiratory: Breath Sounds Normal, No Respiratory Distress - CARDIOVASCULAR Cardiovascular: Regular Rate, Regular Rhythm Pulses: Normal: Radial - MUSCULOSKELETAL/EXTREMETIES Musculoskeletal/Extremeties: MAEW, Tender - Tenderness over distal ulna of right wrist, no edema, no deformity, normal skin color temperature, No Edema. negative: Eccymosis - NEURO Level of Consciousness: Awake, Alert, Appropriate Motor/Sensory: No Motor Deficit - DERM Integumentary: Warm, Dry, No Rash Course - Re-evaluation Re-evalutation: 10/17/18 20:22 Patient denies any injury. Patient states that she has been wearing a brace to treat carpal tunnel and complains of a flareup of right wrist pain. Patient states that her doctor told her it is likely arthritis but he wanted her to come here to have an x-ray performed. 10/17/18 21:53 Patient without any acute injury. Review of patient's x-ray shows small avulsion fragment off of ulnar styloid that was present there 2 years ago on a previous x-ray. No concern for any acute fracture at this time. - Vital Signs Vital signs: Temp Pulse Resp BP Pulse Ox 98.6 F 87 18 108/72 98 10/17/18 19:30 10/17/18 19:30 10/17/18 19:30 10/17/18 19:30 10/17/18 19:30 - Diagnostic Test Radiology reviewed: Pending, Image reviewed Procedures - Immobilization Right Wrist Pre-Proc Neuro Vasc Exam: Normal Immobilizer type: Cock-up Performed by: RN Post-Proc Neuro Vasc Exam: Normal Alignment checked and good: Yes Discharge - Discharge Clinical Impression: Right wrist pain, Arthritis, Overuse injury Condition: Stable Disposition: HOME, SELF-CARE Instructions: Arthritis ([facility]), Overuse Syndrome ([facility]) Additional Instructions: Return immediately for any new or worsening symptoms Followup with your primary care provider, call tomorrow to make a followup appointment Follow-up with orthopedics for further evaluation, call tomorrow to make a follow-up appointment Prescriptions: Naproxen [Naprosyn 250 Nmg Tablet] 1 tab PO BID #14 tablet Referrals: BRI PHILLIPS MD [Primary Care Provider] - Follow up as needed [facility] [Provider Group] - Follow up as needed
--- NOTE | 2018-10-17 21:13 | RADIOLOGY REPORT (SQ) ---
3 VIEWS OF RIGHT WRIST EXAM DATE: 10/17/2018 8:21 PM CDT HISTORY: r wrist pain. COMPARISON: None. FINDINGS: There is a small ossific fragment adjacent to the ulnar styloid. The joint spaces are preserved. The soft tissues are unremarkable. IMPRESSION: Small fragment adjacent to the ulnar styloid consistent with age indeterminate fracture.
[2018-10-17 21:27] VITALS: BP 102/68
== END 2018-10-17 21:57 | disposition home or self-care (01) ==
LOC: ER 19:10
DX: M13.831 Other specified arthritis, right wrist (principal); M25.531 Pain in right wrist; G89.29 Other chronic pain; X50.0XXA Overexertion from strenuous movement or load, initial encounter; F17.200 Nicotine dependence, unspecified, uncomplicated; J44.9 Chronic obstructive pulmonary disease, unspecified
CPT/HCPCS: 73110; L3908

== ENCOUNTER 2018-11-01 15:12 | Emergency (ER) | payer MEDICAID ==
[2018-11-01 15:23] VITALS: BP 99/64
--- NOTE | 2018-11-01 15:37 | ER Document Report ---
ED Medical Screen (RME) - General Chief Complaint: Ankle Injury Stated Complaint: FALL/LEFT FOOT PAIN Time Seen by Provider: 11/01/18 15:35 Primary Care Provider: BRI PHILLIPS MD [Primary Care Provider] - Follow up as needed Mode of Arrival: Wheelchair Information source: Patient Notes: 48-year-old female presents with left foot pain after she tripped over her gr andson's go-cart yesterday. Denies past medical history of injury to foot. I have greeted and performed a rapid initial assessment of this patient. A comprehensive ED assessment and evaluation of the patient, analysis of test results and completion of the medical decision making process will be conducted by additional ED providers. Dictation of this chart was performed using voice recognition software; therefore, there may be some unintended grammatical errors. TRAVEL OUTSIDE OF THE [place] IN LAST 30 DAYS: No - Related Data Allergies/Adverse Reactions: codeine [Codeine] Allergy (Verified 10/17/18 19:11) throat swells, blisters on tongue hydrocodone bitartrate [From Vicodin] Allergy (Verified 10/17/18 19:11) VOMITING sulfamethoxazole [From Septra] Allergy (Verified 10/17/18 19:11) throat swells, blisters in mouth trimethoprim [From Septra] Allergy (Verified 10/17/18 19:11) throat swells, blisters in mouth Past Medical History - Social History Chew tobacco use (# tins/day): No Frequency of alcohol use: None Drug Abuse: None - Past Medical History Cardiac Medical History: Denies: Hx Coronary Artery Disease, Hx Heart Attack, Hx Hypertension Pulmonary Medical History: Reports: Hx Asthma, Hx Bronchitis, Hx COPD - nodules on bilateral lungs Denies: Hx Pneumonia Neurological Medical History: Denies: Hx Cerebrovascular Accident, Hx Seizures Renal/ Medical History: Reports: Hx Kidney Stones - with stent placement. Denies: Hx Peritoneal Dialysis Musculoskeltal Medical History: Reports Hx Arthritis - HANDS,NECK Psychiatric Medical History: Reports: Hx Bipolar Disorder, Hx Depression, Hx Schizoaffective Disorder Past Surgical History: Reports: Hx Gynecologic Surgery - D&C, Hx Hysterectomy - Immunizations Hx Diphtheria, Pertussis, Tetanus Vaccination: Yes History of Influenza Vaccine for 11/2016 - 04/2017 Season: No Physical Exam - Vital signs Vitals: Temp Pulse Resp BP Pulse Ox 97.3 F 88 19 99/64 L 97 11/01/18 15:18 11/01/18 15:18 11/01/18 15:18 11/01/18 15:18 11/01/18 15:18 Course - Vital Signs Vital signs: Temp Pulse Resp BP Pulse Ox 97.3 F 88 19 99/64 L 97 11/01/18 15:18 11/01/18 15:18 11/01/18 15:18 11/01/18 15:18 11/01/18 15:18 Doctor's Discharge - Discharge Referrals: BRI PHILLIPS MD [Primary Care Provider] - Follow up as needed
[2018-11-01] MEDS ORDERED: IBUPROFEN 600 MG TABLET PO ONE (16:03)
--- NOTE | 2018-11-01 16:09 | ER Document Report ---
HPI - HPI Time Seen by Provider: 11/01/18 15:35 Pain Level: 4 Notes: Patient is a 48-year-old female with a history of pulmonary nodules who presents complaining of left medial foot pain status post injury yesterday. Patient states that she tripped over a go-cart and injured it during the process. Patient states that ambulating and weightbearing makes the pain worse, but she is able to limp. She otherwise is able to eat and drink without difficulty. She is urinating normally. She has not noticed any bruising or significant swelling. Denies any headache, fever, URI, sore throat, chest pain, palpitations, syncope, cough, shortness of breath, wheeze, dyspnea, abdominal pain, nausea/vomiting/diarrhea, urinary retention, dysuria, hematuria, loss of control of bowel or bladder, numbness/tingling, muscle paralysis/weakness, or rash. - ROS Systems Reviewed and Negative: Yes All other systems reviewed and negative - REPRODUCTIVE Reproductive: DENIES: : Past Medical History - General Information source: Patient - Social History Smoking Status: Current Every Day Smoker Chew tobacco use (# tins/day): No Frequency of alcohol use: None Drug Abuse: None Family History: Reviewed & Not Pertinent, Other - Unobtainable Patient has suicidal ideation: No Patient has homicidal ideation: No - Past Medical History Cardiac Medical History: Denies: Hx Coronary Artery Disease, Hx Heart Attack, Hx Hypertension Pulmonary Medical History: Reports: Hx Asthma, Hx Bronchitis, Hx COPD - nodules on bilateral lungs Denies: Hx Pneumonia Neurological Medical History: Denies: Hx Cerebrovascular Accident, Hx Seizures Renal/ Medical History: Reports: Hx Kidney Stones - with stent placement. Denies: Hx Peritoneal Dialysis Musculoskeletal Medical History: Reports Hx Arthritis - HANDS,NECK Psychiatric Medical History: Reports: Hx Bipolar Disorder, Hx Depression, Hx Schizoaffective Disorder Past Surgical History: Reports: Hx Gynecologic Surgery - D&C, Hx Hysterectomy - Immunizations Hx Diphtheria, Pertussis, Tetanus Vaccination: Yes Vertical Provider Document - CONSTITUTIONAL Agree With Documented VS: Yes Notes: PHYSICAL EXAMINATION: GENERAL: Well-appearing, well-nourished and in no acute distress. LUNGS: Breath sounds clear to auscultation bilaterally and equal. No wheezes rales or rhonchi. HEART: Regular rate and rhythm without murmurs, rubs, gallops. Musculoskeletal: Lt foot/ankle: No ecchymosis, swelling, or deformity. FROM to passive/active. Strength 5+/5. N/V intact distal. + tenderness to the dorsal foot medially. No bony tenderness of the ankle. Achilles intact. Lis Franc maneuver neg. Anterior drawer neg. Extremities: No cyanosis, clubbing, or edema b/l. Peripheral pulses 2+. Capillary refill less than 3 seconds. NEUROLOGICAL: Normal speech, limping gait. Normal sensory, motor exams PSYCH: Normal mood, normal affect. SKIN: Warm, Dry, normal turgor, no rashes or lesions noted. - INFECTION CONTROL TRAVEL OUTSIDE OF THE [place] IN LAST 30 DAYS: No Course - Re-evaluation Re-evalutation: 11/01/18 Patient is an afebrile, well-hydrated, 48-year-old female who presents to the ED with left foot pain, possible fracture on XR. Vitals are acceptable without any significant tachycardia, tachypnea, or hypoxia. PE is otherwise unremarkable for any neurovascular compromise, obvious tendon/ligament rupture, open fracture, septic joint. See XR result. Splint applied today and crutches provided. Motrin given PO. Patient is nontoxic-appearing. No other labs or imaging warranted at this time based on H&P. Conservative measures otherwise for symptoms. Recheck with your PCM in 3-5 days. Call orthopedics tomorrow to schedule an appointment for further evaluation and management. Return to the ED with any worsening/concerning symptoms otherwise as reviewed in discharge. Patient is in agreement. - Vital Signs Vital signs: Temp Pulse Resp BP Pulse Ox 97.3 F 88 19 99/64 L 97 11/01/18 15:18 11/01/18 15:18 11/01/18 15:18 11/01/18 15:18 11/01/18 15:18 Procedures - Immobilization Left Foot Pre-Proc Neuro Vasc Exam: Normal Immobilizer type: Posterior ankle Performed by: PCT Post-Proc Neuro Vasc Exam: Normal, Unchanged from pre-exam Discharge - Discharge Clinical Impression: Left foot pain Foot fracture, left Qualifiers: Encounter type: initial encounter Fracture type: closed Qualified Code(s): S92.902A - Unspecified fracture of left foot, initial encounter for closed fracture Condition: Stable Disposition: HOME, SELF-CARE Additional Instructions: Rest, Ice, Compression, Elevation Use crutches/splint as directed Tylenol/ibuprofen as needed F/u with your PCP in 3-5 days for a recheck Call orthopedics/podiatry tomorrow to schedule an appointment for further evaluation and management Return to the ED with any worsening symptoms and/or development of fever, headache, chest pain, palpitations, syncope, shortness of breath, trouble breathing, abdominal pain, n/v/d, muscle weakness/paralysis, numbness/tingling, swelling, redness, or other worsening symptoms that are concerning to you. Prescriptions: Ibuprofen [Motrin 800 mg Tablet] 800 mg PO Q8H PRN #15 tab PRN Reason: Oxycodone HCl/Acetaminophen [Percocet 5-325 mg Tablet] 1 tab PO BID #6 tab Forms: Smoking Cessation Education Referrals: BRI PHILLIPS MD [Primary Care Provider] - Follow up as needed [facility] [Provider Group] - Follow up as needed THEE COLEMAN DPM [ACTIVE STAFF] - Follow up in 3-5 days
--- NOTE | 2018-11-01 16:23 | RADIOLOGY REPORT (SQ) ---
EXAM DESCRIPTION: FOOT LEFT COMPLETE COMPLETED DATE/TIME: 11/01/2018 3:46 pm REASON FOR STUDY: pain tripped over gocart COMPARISON: None. NUMBER OF VIEWS: Three views. TECHNIQUE: AP, lateral and oblique radiographic images acquired of the left foot. LIMITATIONS: None. FINDINGS: MINERALIZATION: Normal. BONES: Lucency along the medial sesamoid bone at the left 1st metatarsophalangeal joint. This could either represent a fracture through the sesamoid bone, or could represent a multipartite sesamoid bon e. Correlate clinically for pain at the 1st plantar metatarsophalangeal joint region. JOINTS: No effusions. SOFT TISSUES: Forefoot asoft tissue swelling. No foreign body. OTHER: No other significant finding. IMPRESSION: Lucency along the medial sesamoid bone at the left 1st metatarsophalangeal joint. This could represent a fracture, or could represent a multipartite sesamoid bone. TECHNICAL DOCUMENTATION: JOB ID: [id number] [employer]- All Rights Reserved Reading location - IP/workstation name: [email or web address]
== END 2018-11-01 16:55 | disposition home or self-care (01) ==
LOC: ER 15:12
DX: S92.902A Unspecified fracture of left foot, initial encounter for closed fracture (principal); M79.672 Pain in left foot; W18.49XA Other slipping, tripping and stumbling without falling, initial encounter; F17.200 Nicotine dependence, unspecified, uncomplicated; J44.9 Chronic obstructive pulmonary disease, unspecified
CPT/HCPCS: 99283; 73630; 29515; J3490